=== PATIENT | male | born 1960 | race Caucasian/White ===

== ENCOUNTER 2018-02-04 21:05 | Inpatient (IN) | payer MEDICAID ==
--- NOTE | 2018-02-04 21:15 | CPEKG ---
Heart Rate: 115 RR Interval: 522 QRSD Interval: 88 QT Interval: 336 QTC Interval: 465 QRS [place]: 53 T Wave [place]: 81 EKG Severity - ABNORMAL ECG - EKG Impression: ATRIAL FIBRILLATION, V-RATE 94-139 EKG Impression: CONSIDER ANTEROSEPTAL INFARCT Electronically Signed By: Alisson Carlos 04-Feb-2018 23:51:51
[2018-02-04 21:30] LABS: PLATELET COUNT 318 10^3/uL (150-400)
[2018-02-04] MEDS ORDERED: DILTIAZEM 25 MG/5 ML VIAL IVP ONE (21:37)
[2018-02-04] MEDS ORDERED: ONDANSETRON DISINTEGRATING 4 MG TAB PO PRN (22:34)
[2018-02-04] MEDS ORDERED: ONDANSETRON 4 MG/2 ML VIAL IVP PRN (22:34)
[2018-02-04] MEDS ORDERED: ACETAMINOPHEN 325 MG TAB PO PRN (22:34)
[2018-02-04] MEDS ORDERED: FLUMAZENIL 0.5 MG/5 ML MDV IVP PRN (23:01)
[2018-02-04] MEDS ORDERED: LORazepam 2 MG/ML INJ IVP PRN (23:01)
[2018-02-04] MEDS ORDERED: NICOTINE 21 MG/24 HR PATCH TD PRN (23:01)
[2018-02-04 23:17] LABS: INR 0.94 (0.83-1.16); PROTIME(PATIENT) 12.8 SEC (12.0-15.0)
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
[2018-02-05] MEDS: NS 1,000 ML IV SCH ×2 (00:02→11:50)
[2018-02-05] MEDS: THIAMINE HCL 100 MG TAB PO SCH ×2 (00:08→09:36)
--- NOTE | 2018-02-05 00:08 | EDPHY ---
H & P Stated Complaint: CP and SOB for 3 days Time Seen by Provider: 02/04/18 21:20 HPI/ROS: CHIEF COMPLAINT: Chest pain HISTORY OF PRESENT ILLNESS: This 58-year-old male who presents with chest pressure that he has been aware of for the last 2-3 days. He feels this pressure across his upper chest. It does not radiate. He has had no nausea or vomiting. It is accompanied by shortness of breath. He felt worse today, prompting his roommate call 911. Has a history of tobacco abuse in is trying to cut back. He tells me that he currently smokes 3 cigarettes per day. He reports drinking 1 6 pack of beer daily. He denies any medical history. He does not have a primary care physician. REVIEW OF SYSTEMS: A ten point review of systems was performed and is negative with the exception of the items mentioned in the HPI. Past medical history: Tobacco abuse. Alcohol abuse. Past surgical history: None Social history: He lives with a roommate in a [facility]. He is not currently employed. No illicit drugs. General Appearance: Alert. Vital signs reviewed. Heart rate 120s. Eyes: Pupils equal and round, no conjunctival injection, no discharge. Anicteric. ENT, Mouth: Mucous membranes are moist, no oropharyngeal erythema or edema. Neck: No lymphadenopathy, supple. No JVD. Respiratory: Lungs are clear to auscultation; no wheezes, rales, or rhonchi. Cardiovascular: Irregularly irregular; no murmur, rub, or gallop. Gastrointestinal: Abdomen is soft and nontender, no masses or organomegaly, bowel sounds normal. Skin: Warm and dry, no rashes on exposed skin, normal color. Back: Nontender to palpation over the thoracolumbar spine. No CVAT. Extremities: No lower extremity edema, no calf tenderness or swelling. Neurological: Alert and oriented. Moving all four extremities easily and equally. Psychiatric: Normal affect. - Personal History Current Tetanus/Diphtheria Vaccine: No Current Tetanus Diphtheria and Acellular Pertussis (TDAP): No - Medical/Surgical History Hx Asthma: No Hx Chronic Respiratory Disease: No Hx Diabetes: No Hx Cardiac Disease: No Hx Renal Disease: No Hx Cirrhosis: No Hx Alcoholism: Yes Hx HIV/AIDS: No Hx Splenectomy or Spleen Trauma: No Other PMH: DENIES - Social History Smoking Status: Current every day smoker Constitutional: Initial Vital Signs Temperature (C) 36.4 C 02/04/18 21:11 Heart Rate 126 H 02/04/18 21:11 Respiratory Rate 18 02/04/18 21:11 Blood Pressure 146/103 H 02/04/18 21:11 O2 Sat (%) 95 02/04/18 21:11 O2 Delivery Mode Room Air Allergies/Adverse Reactions: No Known Allergies Allergy (Verified 02/04/18 21:13) Home Medications: Medication Instructions Recorded NK [No Known Home Meds] 02/04/18 Medical Decision Making - Diagnostics EKG Interpretation: 12 lead EKG is interpreted in Trace master View by emergency department physician. Atrial fibrillation with a ventricular rate of 94-139. ED Course/Re-evaluation: 58-year-old male with what appears to be new onset atrial fibrillation and a ventricular response of 94/139. He is experiencing some chest pressure and shortness of breath. He is not hypoxic in the emergency department. He is hypertensive initially. Initial troponin is normal. CBC, chemistries, and TSH reviewed. His EKG shows atrial fibrillation. He was given diltiazem 10 mg IV in the emergency department which slowed his rate. Slowing his rate also helped with his sensation of chest discomfort. He no longer was complaining of chest pain. Chest x-ray is normal. He is being admitted to the hospital for new onset atrial fibrillation. Differential Diagnosis: I have considered a differential diagnosis of atrial fibrillation that includes but is not limited to myocardial ischemia/coronary artery disease, sick sinus syndrome, hypertension, lung disease, hyperthyroidism, sleep apnea, and age. - Data Points Laboratory Results: Laboratory Results 02/04/18 21:10 02/04/18 21:10 02/04/18 02/04/18 02/04/18 21:25 21:10 21:10 WBC RBC Hgb Hct MCV MCH MCHC RDW Plt Count MPV Neut % (Auto) Lymph % (Auto) [place] % (Auto) Eos % (Auto) Baso % (Auto) Nucleat RBC Rel Count Absolute Neuts (auto) Absolute Lymphs (auto) Absolute Monos (auto) Absolute Eos (auto) Absolute Basos (auto) Absolute Nucleated RBC Immature Gran % Immature Gran # PT 12.8 SEC SEC (12.0-15.0) INR 0.94 (0.83-1.16) APTT 27.5 SEC SEC (23.0-38.0) Sodium Potassium Chloride Carbon Dioxide Anion Gap BUN Creatinine Estimated GFR Glucose Calcium Total Bilirubin 0.4 mg/dL mg/dL (0.1-1.4) Conjugated Bilirubin 0.0 mg/dL mg/dL (0.0-0.5) Unconjugated Bilirubin 0.0 mg/dL mg/dL (0.0-1.1) AST 50 IU/L IU/L (17-59) ALT 29 IU/L IU/L (21-72) Alkaline Phosphatase 49 IU/L IU/L (38-126) POC Troponin I 0.00 ng/mL ng/mL (0.00-0.08) Total Protein 7.9 g/dL g/dL (6.3-8.2) Albumin 4.6 g/dL g/dL (3.5-5.0) TSH 02/04/18 02/04/18 21:10 21:10 WBC 7.08 10^3/uL 10^3/uL (3.80-9.50) RBC 5.16 10^6/uL 10^6/uL (4.40-6.38) Hgb 17.5 g/dL g/dL (13.7-17.5) Hct 48.6 % % (40.0-51.0) MCV 94.2 fL fL (81.5-99.8) MCH 33.9 pg pg (27.9-34.1) MCHC 36.0 g/dL g/dL (32.4-36.7) RDW 12.4 % % (11.5-15.2) Plt Count 318 10^3/uL 10^3/uL (150-400) MPV 8.8 fL fL (8.7-11.7) Neut % (Auto) 31.7 % L % (39.3-74.2) Lymph % (Auto) 56.1 % H % (15.0-45.0) [place] % (Auto) 7.9 % % (4.5-13.0) Eos % (Auto) 3.1 % % (0.6-7.6) Baso % (Auto) 1.1 % % (0.3-1.7) Nucleat RBC Rel Count 0.0 % % (0.0-0.2) Absolute Neuts (auto) 2.24 10^3/uL 10^3/uL (1.70-6.50) Absolute Lymphs (auto) 3.97 10^3/uL H 10^3/uL (1.00-3.00) Absolute Monos (auto) 0.56 10^3/uL 10^3/uL (0.30-0.80) Absolute Eos (auto) 0.22 10^3/uL 10^3/uL (0.03-0.40) Absolute Basos (auto) 0.08 10^3/uL 10^3/uL (0.02-0.10) Absolute Nucleated RBC 0.00 10^3/uL 10^3/uL (0-0.01) Immature Gran % 0.1 % % (0.0-1.1) Immature Gran # 0.01 10^3/uL 10^3/uL (0.00-0.10) PT INR APTT Sodium 140 mEq/L mEq/L (135-145) Potassium 4.4 mEq/L mEq/L (3.3-5.0) Chloride 104 mEq/L mEq/L (97-110) Carbon Dioxide 21 mEq/l L mEq/l (22-31) Anion Gap 15 mEq/L mEq/L (8-16) BUN 7 mg/dL mg/dL (7-23) Creatinine 0.8 mg/dL mg/dL (0.7-1.3) Estimated GFR > 60 Glucose 90 mg/dL mg/dL (70-100) Calcium 9.3 mg/dL mg/dL (8.5-10.4) Total Bilirubin Conjugated Bilirubin Unconjugated Bilirubin AST ALT Alkaline Phosphatase POC Troponin I Total Protein Albumin TSH 3.110 uIU/mL uIU/mL (0.465-4.680) Medications Given: Sodium Chloride (Ns) 1,000 mls @ 75 mls/hr IV CONT SISSY Stop: 08/03/18 22:59 Last Admin: 02/05/18 00:02 Dose: 1,000 mls Lorazepam (Ativan Injection) 0 mg IVP Q1H PRN; Protocol PRN Reason: Alcohol Withdrawal w/IV access Stop: 08/03/18 23:00 Last Admin: 02/05/18 00:02 Dose: 2 mg Thiamine HCl (Vitamin B-1) 100 mg PO DAILY SISSY Stop: 08/03/18 23:14 Last Admin: 02/05/18 00:08 Dose: 100 mg Discontinued Medications Diltiazem HCl (Cardizem 25 Mg/5 Ml Vial) 10 mg IVP EDNOW ONE Stop: 02/04/18 21:38 Last Admin: 02/04/18 21:44 Dose: 10 mg Point of Care Test Results: Chemistry 02/04/18 21:25 POC Troponin I 0.00 ng/mL ng/mL (0.00-0.08) Departure - Departure Disposition: [facility] Inpatient Acute Clinical Impression: Atrial fibrillation Qualifiers: Atrial fibrillation type: unspecified Qualified Code(s): I48.91 - Unspecified atrial fibrillation Condition: Fair
[2018-02-05] MEDS ORDERED: METOPROLOL TARTRATE 25 MG TAB PO SCH (00:30)
[2018-02-05] MEDS: chlordiazePOXIDE 25 MG CAP PO SCH ×4 (01:31→22:28)
[2018-02-05] MEDS ORDERED: ENOXAPARIN 40 MG/0.4 ML SYR SC SCH (09:00)
[2018-02-05] MEDS: APIXABAN 5 MG TAB PO SCH ×2 (10:18→20:31)
[2018-02-05] MEDS: METOPROLOL TARTRATE 25 MG TAB PO SCH ×2 (10:18→20:31)
--- NOTE | 2018-02-05 11:00 | ECHO ---
[email or web address] [address] Main: [phone] Fax: [email or web address] Echocardiogram Name: EVELIA CHEEMA MR#: [id number] Study Date: 02/05/2018 Study Time: 08:51 AM Date of : 1960 Age: 58 year(s) Height: 177.8 cm (70 in.) Weight: 56.7 kg (125 lb.) BSA: 1.71 m2 Gender: Male Examination: Echo Indication: Arrthymia Image Quality: Contrast: Requested by: Cyndie Henry BP: 129 mmHg/96 mmHg Heart Rate: Rhythm: Indication: Arrthymia Procedure Staff Rn Clinical Coordinator: Clarissa Ram [facility] Reading Physician: Marck Downs MD Requesting Provider: Conclusions: No LV hypertrophy. Moderately reduced systolic LV function. The ejection fraction is estimated to be 40-45 %. Diastolic dysfunction is present. . Mid inferior/inferoseptal and entire apical have marked hypokinesis possibly akinesis consistent w prior infarction . Mild mitral valve leaflet calcification is present. Mild mitral valve regurgitation is present. The aortic valve is normal in appearance and function. The tricuspid valve is normal in appearance and function. Mild tricuspid regurgitation is present. The pulmonary artery pressure is normal. No previous Measurements: Chambers Valvular Assessment AV/MV Valvular Assessment TV/PV Normal Normal Normal Name Value Range Name Value Range Name Value Range LVDd (2D): 4.1 cm (4.2 cm-5.9 AV Vmax: 0.83 m/s (1 m/s-1.7 TR Vmax: 2.00 mm/s ( - ) cm) m/s) TR PGmax: 16 mmHg ( - ) LVOTd 2.1 cm 2.1 cm mm AV maxP mmHg ( - ) syst. PAP: 21 mmHg ( - ) LVEF (BP): 48 % (>=55 %) AV meanP mmHg ( - ) EF Range: 40-45 % MV E Vmax: 0.84 m/s ( - ) MV A Vmax: 0.94 m/s ( - ) MV E/A: 0.89 ( - ) Continued Measurements: Chambers Valvular Assessment AV/MV Valvular Assessment TV/PV Patient: EVELIA CHEEMA Study Date: 02/05/2018 Page 1 of 2 08:51 AM Name Value Name Value Name Value LADs Lon.2 cm MV E/E' Septal: 27.80 CVP (est.): 5 mmHg LA Area: 12.1 cm2 MV E/E' Lateral: 15.70 Findings: Left Ventricle: Normal size left ventricle. No LV hypertrophy. Moderately reduced systolic LV function. The ejection fraction is estimated to be 40-45 %. Diastolic dysfunction is present. . Mid inferior/inferoseptal and entire apical have marked hypokinesis possibly akinesis consistent w prior infarction . Right Ventricle: Normal size right ventricle. Left Atrium: The left atrium is normal in size. Right Atrium: The right atrium is normal in size. Mitral Valve: Mild-moderate mitral annular calcification. Mild mitral valve leaflet calcification is present. Mild mitral valve regurgitation is present. Aortic Valve: The aortic valve is normal in appearance and function. Tricuspid Valve: The tricuspid valve is normal in appearance and function. Mild tricuspid regurgitation is present. The pulmonary artery pressure is normal. Pulmonic Valve: Pulmonary valve not well visualized. Aorta: The aorta is normal. Pericardium: No pericardial effusion. (No Signature Object) Patient: EVELIA CHEEMA Study Date: 02/05/2018 Page 2 of 2 08:51 AM [id number]
--- NOTE | 2018-02-05 15:24 | ASMTCMCOM ---
CM Note CM Note Notes: 02/05/18 Pt admitted for RVR a fib, converted spontaneously today.Met with pt today. Lives in trailer on [facility] ([facility]), with roomate who has developmental delays - Reynold Bah text only. Landlord is Nelson Diop [phone]. Nelson runs them down to town monthly for groceries. 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 Pt has hx of nicotine and ETOH use. Resources provided including AA meeting times in [place]. Med data evaluated pt for medicaid application. Referred pt to [facility] who will follow up after discharge. Pt needs PCP. PT eval still pending. CM d/c plan: TBD CM to follow as needed. Date Signed: 02/05/2018 03:23 PM Electronically Signed By:Isi Caruso
--- NOTE | 2018-02-05 16:28 | PDMN ---
Medical Necessity Medical necessity: Pt meets inpt criteria per MD order and MCG M-505, Atrial Fibrilation. Pt admitted w/afib w/RVR, cp, acute alcohol WD, IVF, IV Ativan, Librium, ECHO, consistent tachy. Anticipate >2MN, med nec for ongoing eval and treatment.
--- NOTE | 2018-02-05 17:37 | HOSPPROG ---
Hospitalist Progress Note Assessment/Plan: Assessment: 58-year-old male presents with acute alcohol withdrawal and subsequent acute atrial fibrillation with rapid ventricular response and concomitant acute chest pain Plan: 1. Alcohol withdrawal. Acute, evidenced by tremulousness, tachycardia, daily drinking history with last consumption approximately 24 hr ago -CIWA protocol, IV and oral Ativan as needed 2. Atrial fibrillation with acute rapid ventricular response. New diagnosis, unclear whether this was provoked by and exacerbated by his alcohol withdrawal, or whether the to issues occurred concomitantly independently -EKG demonstrating atrial fibrillation with poor R-wave progression in leads V2 to V3, personally interpreted comma chest x-ray without any acute findings -patient has chemically cardioverted with oral beta-tameka therapy, continue monitor on telemetry as he is high risk for returning back into atrial fibrillation while he experiences ongoing alcohol withdrawal -given his reported prior history of CVA, patient has indication for systemic anticoagulation, initiate Eliquis 5 mg twice daily given his living situation and difficulty accessing medical care 3. Chest pain. Acute, new problem this provider, further workup indicated. Unclear whether the patient's chest pain was provoked by his atrial fibrillation or was caused by acute cardiac event resulting in focal wall motion abnormalities on echocardiogram -echo demonstrates moderate hypokinesis in focal locality is including the inferior wall, septum, apical wall with resultant ejection fraction 40-45%, mild mitral regurgitation, diastolic dysfunction -his cardiac enzymes are negative on presentation so it is likely that he experienced a previous cardiac vent, potentially predisposing him to development of atrial fibrillation, particularly with a lower threshold in the setting of alcohol withdrawal -given that the patient most likely has underlying obstructive coronary disease and his recent recurrence of chest pain may be evidence of risk for ischemia in particular territories, will pursue nuclear medicine stress test tomorrow a.m. And cardiac catheterization with consultation if there are any abnormalities -NPO after midnight -get lipid panel, hemoglobin A1c Diet. Regular, NPO after midnight Prophylaxis. High risk, Eliquis Code. Full Disposition. Upgraded to inpatient admission status given the patient's anticipated length stay is greater than 48 hr for reasonable medical necessity including acute alcohol withdrawal which has yet to clinically resolved with high risk comorbid acute atrial fibrillation with rapid ventricular response, acute chest pain and most likely recent myocardial infarction warranting further diagnostic testing including stress test and likely cardiac catheterization. Subjective: Patient reports no current chest pain, he does experience palpitations with heart rates greater than 150 Objective: Vital Signs Temp Pulse Resp BP Pulse Ox 36.8 C 124 H 16 116/98 H 98 02/05/18 12:22 02/05/18 12:22 02/05/18 12:22 02/05/18 12:22 02/05/18 12:22 PT 12.8 SEC (12.0-15.0) 02/04/18 21:10 INR 0.94 (0.83-1.16) 02/04/18 21:10 - Physical Exam Constitutional: no apparent distress, appears nourished, not in pain, No uncomfortable Cardiovascular: irregularly irregular, tachycardia, No systolic murmur, No edema Respiratory: no respiratory distress, no rales or rhonchi, clear to auscultation Gastrointestinal: normoactive bowel sounds, soft, non-tender abdomen, no palpable masses Neurologic: AAOx3, sensation intact bilaterally, asterixes (mild w/ bilat UE tremor), No weakness Psychiatric: not encephalopathic, thought process linear, anxious, No agitated ICD10 Worksheet Patient Problems: Problems Problem Status Onset Atrial fibrillation Acute
[2018-02-05] MEDS: NICOTINE 7 MG/24 HR PATCH TD SCH (17:54)
[2018-02-06] MEDS: NICOTINE 7 MG/24 HR PATCH TD SCH (07:35)
[2018-02-06] MEDS: chlordiazePOXIDE 25 MG CAP PO SCH (07:35)
[2018-02-06] MEDS: THIAMINE HCL 100 MG TAB PO SCH (07:35)
[2018-02-06] MEDS ORDERED: REGADENOSON 0.4 MG/5 ML SYR IVP ONE (09:45)
--- NOTE | 2018-02-06 10:03 | PDCARST ---
CAR Stress Test Results Type of Stress Test: Lexiscan stress test Indication: cp/abn echo Description of Procedure: Patient attempted to do Olman protocol but test was discontinued after 1 minute due to tremulousness and gait instability (likely EtOH w/d). He was transitioned to Lexiscan protocol. After informed consent was obtained, pt was established to ECG, blood pressure, HR and oximetry monitoring. STRESS EKG AND HEMODYNAMIC DATA. Resting heart rate: 82 BPM. Resting ECG: SR with diffuse T w flattening and TWi. Resting blood pressure: 110/80 mmHg. O2 saturation at rest: 96%. Peak heart rate: 122 BPM. Peak blood pressure: 112/80 mmHg. Arrhythmias: none. Symptoms: The patient experienced no typical symptoms of angina during stress or recovery. Stress/ Infusion ECG: No change in rhythm with no significant ST/T wave changes. Stress /infusion O2 saturation: 100% Impression: Uneventful Lexiscan infusion. Conclusion: Await nuclear images.
[2018-02-06] MEDS: APIXABAN 5 MG TAB PO SCH (10:47)
[2018-02-06] MEDS: METOPROLOL TARTRATE 25 MG TAB PO SCH ×2 (10:47→20:51)
[2018-02-06] MEDS: LISINOPRIL 2.5 MG TAB PO SCH (12:59)
[2018-02-06] MEDS: ATORVASTATIN CALCIUM 10 MG TAB PO SCH (12:59)
[2018-02-06] MEDS ORDERED: NITROGLYCERIN 0.4 MG BTL SL PRN (13:56)
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
--- NOTE | 2018-02-06 15:49 | HOSPPROG ---
Hospitalist Progress Note Assessment/Plan: Assessment: 58-year-old male presents with acute alcohol withdrawal and subsequent acute atrial fibrillation with rapid ventricular response and concomitant acute chest pain and suspected ID Plan: 1. Alcohol withdrawal. Acute, evidenced by tremulousness, tachycardia, daily drinking history with last consumption approximately 48 hr ago -requiring librium o/n 2/2 escalation -CIWA protocol, IV and oral Ativan as needed 2. Atrial fibrillation with acute rapid ventricular response. New diagnosis, likely predisposed given recent ID and now EtOH withdraw -in NSR on tele (personally interpreted) -cont metop 25 bid, cont eliquis, hold tonight dosing prior to cath 3. Chest pain and suspected ID. Likely occurred [employer] and remotely enough for troponins to clear prior to arrival, but Echo and Stress both indicative of infarction -d/w Nicole Evans, internal consultant, she recommends diagnostic cath in AM to reveal anatomy and any at-risk territory -start ACEi, cont bblocker, add statin (goal LDL 70) Diet. Regular, NPO after midnight Prophylaxis. High risk, Eliquis on hold Code. Full Disposition. Cath tomorrow AM Subjective: no further chest pain, remains tremulous Objective: Vital Signs Temp Pulse Resp BP Pulse Ox 36.4 C 78 15 143/94 H 95 02/06/18 11:05 02/06/18 11:05 02/06/18 11:05 02/06/18 11:05 02/06/18 11:05 02/05/18 02/06/18 02/07/18 05:59 05:59 05:59 Intake Total 2185 Balance 2185 PT 12.8 SEC (12.0-15.0) 02/04/18 21:10 INR 0.94 (0.83-1.16) 02/04/18 21:10 - Physical Exam Constitutional: no apparent distress, not in pain, chronically ill appearing, No uncomfortable Cardiovascular: regular rate and rhythym, no murmur, rub, or gallop, No edema Respiratory: no respiratory distress, no rales or rhonchi, clear to auscultation Gastrointestinal: normoactive bowel sounds, soft, non-tender abdomen, no palpable masses Neurologic: AAOx3, other (bilat upper ext tremulousness), No asterixes Psychiatric: not encephalopathic, thought process linear, anxious, No agitated ICD10 Worksheet Patient Problems: Problems Problem Status Onset Atrial fibrillation Acute
[2018-02-07 04:07] LABS: INR 1.04 (0.83-1.16); PROTIME(PATIENT) 13.8 SEC (12.0-15.0)
[2018-02-07 04:16] LABS: PLATELET COUNT 245 10^3/uL (150-400)
[2018-02-07] MEDS ORDERED: DIAZEPAM 5 MG TAB PO ONE (06:00)
[2018-02-07] MEDS ORDERED: ASPIRIN EC 325 MG TAB PO ONE ×2 (06:00→12:00)
[2018-02-07] MEDS ORDERED: FAMOTIDINE 20 MG TAB PO ONE (06:00)
[2018-02-07] MEDS ORDERED: diphenhydrAMINE 25 MG CAP PO ONE ×2 (06:00→12:00)
[2018-02-07] MEDS: THIAMINE HCL 100 MG TAB PO SCH (08:01)
[2018-02-07] MEDS: ATORVASTATIN CALCIUM 10 MG TAB PO SCH (08:01)
[2018-02-07] MEDS: LISINOPRIL 2.5 MG TAB PO SCH (08:01)
[2018-02-07] MEDS: NICOTINE 7 MG/24 HR PATCH TD SCH (08:01)
[2018-02-07] MEDS: METOPROLOL TARTRATE 25 MG TAB PO SCH ×2 (08:01→21:14)
--- NOTE | 2018-02-07 08:55 | CPEKG ---
Heart Rate: 82 RR Interval: 732 P-R Interval: 160 QRSD Interval: 80 QT Interval: 416 QTC Interval: 486 P Gaffney: 85 QRS Gaffney: 60 T Wave Gaffney: -52 EKG Severity - ABNORMAL ECG - EKG Impression: SINUS RHYTHM EKG Impression: RIGHT ATRIAL ABNORMALITY EKG Impression: BORDERLINE T ABNORMALITIES, INFERIOR LEADS EKG Impression: BORDERLINE PROLONGED QT INTERVAL Electronically Signed By: Navarro Álvarez 07-Feb-2018 09:42:39
[2018-02-07] MEDS ORDERED: FAMOTIDINE 20 MG TAB ONE (12:00)
[2018-02-07] MEDS ORDERED: DIAZEPAM 5 MG TAB ONE (12:01)
--- NOTE | 2018-02-07 13:53 | PDHPUP ---
History & Physical Update H&P update statement: This history and physical update is based on an assessment of the patient which was completed after admission or registration (within 24 hours), but prior to the surgery/procedure. H&P update: H&P reviewed & patient examined, no change in patient's condition since H&P completed
--- NOTE | 2018-02-07 13:53 | PDPROPOC ---
Sedation Plan of Care Sedation Plan of Care: vital signs stable, mental status noted, patient educated of risks, benefits, alternatives, patient can tolerate sedation ASA Classification: ASA 2 Planned drugs: fentanyl, midazolam Mallampati Score: Class 1 Mallampati Reference Image: Patient passed 3-3-2 rule?: Yes
[2018-02-07] MEDS ORDERED: LIDOCAINE 1% 300 MG/30 ML SDV ONE (14:00)
[2018-02-07] MEDS ORDERED: fentaNYL 100 MCG/2 ML INJ ONE ×2 (14:00→14:31)
[2018-02-07] MEDS ORDERED: IOPAMIDOL (ISOVUE-370) 150 ML BTL IV ONE (14:00)
[2018-02-07] MEDS ORDERED: MIDAZOLAM 2 MG/2 ML VIAL ONE ×2 (14:00→14:31)
[2018-02-07] MEDS ORDERED: ATROPINE SULFATE 1 MG/10 ML SYR IVP PRN (15:03)
--- NOTE | 2018-02-07 15:13 | PDDXCAT ---
Diagnostic Cath Note - . Date: 02/07/18 Dinkey Brakeman: Richard Indication: other (Chest pain, abnormal ECG, abnormal nuclear stress test, and cardiomyopathy.) - Procedure Access: right groin Procedure: left heart catheterization, coronary angiography, left ventriculogram - Materials Left Heart Cath size: 6F Left Heart Cath materials: standard multipack (JL4, JR4, pigtail) - Findings-Left Heart Catheterization LM: Normal. LAD: Fluoroscopy reveals the presence of extensive calcification from the proximal to mid-LAD. Angiography reveals mild irregularities of the proximal LAD. The mid-LAD demonstrates a total occlusion; the distal LAD fills via right- to-left collaterals; the principle diagonal branch has 50% ostial stenosis. LCX: Flouroscopy demonstrates the presence of significant calcification in the proximal to mid-circumflex. Angiography reveals diffuse moderate disease of the proximal to midcircumflex. In the mid-circumflex, there is a focal 70-80% stenosis immediately prior to the origin of the principal obtuse marginal branch and jeopardizing a small posterolateral branch. RCA: Flouroscopy demonstrates the presence of calcification involving the proximal to mid-RCA. Angiography reveals moderate disease of the mid-RCA up to 50%. The ostium of the posterior descending branch has a focal stenosis of at least 60%. LVEF: 45% Wall motion: Apical hypokinesis. Estimated blood loss: <50ml Closure method: Angioseal Assessment: 1) Ischemic cardiomyopathy with mildly reduced LV systolic function. 2) Multivessel CAD as described above. Plan: CT surgery consult to consider CABG. Patient Problems: Problems Problem Status Onset Atrial fibrillation Acute
--- NOTE | 2018-02-07 16:32 | HOSPPROG ---
Hospitalist Progress Note Assessment/Plan: Assessment: 58-year-old male presents with acute alcohol withdrawal and subsequent acute atrial fibrillation with rapid ventricular response and concomitant acute chest pain and suspected IN Plan: 1. Alcohol withdrawal. Acute, evidenced by tremulousness, tachycardia, resolved -DC CIWA 2. Atrial fibrillation with acute rapid ventricular response. New diagnosis, likely predisposed given recent IN and now EtOH withdraw -in NSR on EKG (personally interpreted) -cont metop 25 bid, holding eliquis given upcoming CABG 3. Ischemic cardiomyopathy w/ multivessel CAD. Chronic, likely IN prior to arrival, remote enough for troponins to clear prior to arrival, cath w/ EF 45%, mid LAD total occlusion, diag 50%, mid-LCx 70-80%, RCA 50% -no e/o acute CHF on exam -cont ACEi, bblocker, statin (goal LDL 70), ASA -d/w Dr. Ramos, he recommends CABG and, after discussing w/ patient, it seems that he will be at risk for complication if discharged home and should receive urgent CABG, plan for 02/09 after holding eliquis 72hrs Diet. Regular Prophylaxis. High risk, SCDs Code. Full Disposition. CABG 02/09 Subjective: patient fatigued, feels groggy, no chest pain Objective: Vital Signs Temp Pulse Resp BP Pulse Ox 36.3 C 77 18 120/77 99 02/07/18 11:46 02/07/18 11:46 02/07/18 11:46 02/07/18 11:46 02/07/18 11:46 Laboratory Results 02/07/18 03:45 02/07/18 03:45 02/06/18 02/07/18 02/08/18 05:59 05:59 05:59 Intake Total 2185 750 Balance 2185 750 PT 13.8 SEC (12.0-15.0) 02/07/18 03:45 INR 1.04 (0.83-1.16) 02/07/18 03:45 - Physical Exam Constitutional: no apparent distress, appears nourished, not in pain, No uncomfortable Cardiovascular: regular rate and rhythym, no murmur, rub, or gallop, No edema Respiratory: no respiratory distress, no rales or rhonchi, clear to auscultation Gastrointestinal: normoactive bowel sounds, soft, non-tender abdomen, no palpable masses, No guarding, No distension Psychiatric: not anxious, not encephalopathic, flat affect, other (lethargic but arousable to verbal stimuli), No agitated ICD10 Worksheet Patient Problems: Problems Problem Status Onset Atrial fibrillation Acute
--- NOTE | 2018-02-07 16:46 | PDGENHP ---
History and Physical - Chief Complaint CAD - History of Present Illness 58M with 3VD consulted by Dr. Matthew Ramos for coronary revascularization. Pt was seen in the ED on the in rapid atrial fibrillation with c/o chest pain/ SOB while chopping wood. The pt states over the past year he's experienced chest pain/SOB on exertion which resolves when he rests. He also c/o associated weakness and lightheadedness. He denies syncope, cough, abdominal pain, urinary problems, or LE edema. He states he was told several years ago at [facility] that he had had a minor stroke but his records do not confirm evidence of stroke. He denies h/o surgeries. He has smoked cigarettes since his teens (3 per day now) and has drank at least a 6-pack of beer each day since then as well. He's hoping to get surgery on this admission since he's currently uninsured and without a job. He lives up [facility] with a roommate. History Information - Allergies/Home Medication List Allergies/Adverse Reactions: No Known Allergies Allergy (Verified 02/04/18 21:13) Home Medications: NK [No Known Home Meds] 02/04/18 [Last Taken Unknown] I have personally reviewed and updated: medical history, social history, surgical history - Past Medical History atrial fibrillation, coronary artery disease Additional medical history: osteoarthritis, seasonal allergies, history of occasional wheezing - Surgical History Reports: no pertinent surgical hx - Family History Additional family history: Mother with history [place] CAD x2. Patient's youngest sister age 50s from [place]. - Social History Smoking Status: Current every day smoker Tobacco Use: Cigarettes Alcohol Use: Heavy (6-8 pack daily. No history withdrawal symptoms.) Drug Use: Marijuana (Daily use.) Review of Systems Review of Systems: ROS: 10pt was reviewed & negative except for what was stated in HPI & below Physical Exam Physical Exam: Temp Pulse Resp BP Pulse Ox 36.3 C 77 18 120/77 99 02/07/18 11:46 02/07/18 11:46 02/07/18 11:46 02/07/18 11:46 02/07/18 11:46 Lab Data & Imaging Review 02/07/18 03:45 02/07/18 03:45 WBC 5.73 10^3/uL (3.80-9.50) 02/07/18 03:45 RBC 4.90 10^6/uL (4.40-6.38) 02/07/18 03:45 Hgb 16.4 g/dL (13.7-17.5) 02/07/18 03:45 Hct 47.4 % (40.0-51.0) 02/07/18 03:45 MCV 96.7 fL (81.5-99.8) 02/07/18 03:45 MCH 33.5 pg (27.9-34.1) 02/07/18 03:45 MCHC 34.6 g/dL (32.4-36.7) 02/07/18 03:45 RDW 12.6 % (11.5-15.2) 02/07/18 03:45 Plt Count 245 10^3/uL (150-400) 02/07/18 03:45 MPV 8.8 fL (8.7-11.7) 02/07/18 03:45 Neut % (Auto) 52.9 % (39.3-74.2) 02/07/18 03:45 Lymph % (Auto) 31.1 % (15.0-45.0) 02/07/18 03:45 [place] % (Auto) 10.5 % (4.5-13.0) 02/07/18 03:45 Eos % (Auto) 4.4 % (0.6-7.6) 02/07/18 03:45 Baso % (Auto) 0.9 % (0.3-1.7) 02/07/18 03:45 Nucleat RBC Rel Count 0.0 % (0.0-0.2) 02/07/18 03:45 Absolute Neuts (auto) 3.04 10^3/uL (1.70-6.50) 02/07/18 03:45 Absolute Lymphs (auto) 1.78 10^3/uL (1.00-3.00) 02/07/18 03:45 Absolute Monos (auto) 0.60 10^3/uL (0.30-0.80) 02/07/18 03:45 Absolute Eos (auto) 0.25 10^3/uL (0.03-0.40) 02/07/18 03:45 Absolute Basos (auto) 0.05 10^3/uL (0.02-0.10) 02/07/18 03:45 Absolute Nucleated RBC 0.00 10^3/uL (0-0.01) 02/07/18 03:45 Immature Gran % 0.2 % (0.0-1.1) 02/07/18 03:45 Immature Gran # 0.01 10^3/uL (0.00-0.10) 02/07/18 03:45 PT 13.8 SEC (12.0-15.0) 02/07/18 03:45 INR 1.04 (0.83-1.16) 02/07/18 03:45 APTT 28.3 SEC (23.0-38.0) 02/07/18 03:45 Sodium 138 mEq/L (135-145) 02/07/18 03:45 Potassium 4.7 mEq/L (3.3-5.0) 02/07/18 03:45 Chloride 105 mEq/L (97-110) 02/07/18 03:45 Carbon Dioxide 25 mEq/l (22-31) 02/07/18 03:45 Anion Gap 8 mEq/L (8-16) 02/07/18 03:45 BUN 12 mg/dL (7-23) 02/07/18 03:45 Creatinine 0.8 mg/dL (0.7-1.3) 02/07/18 03:45 Estimated GFR > 60 02/07/18 03:45 Glucose 93 mg/dL (70-100) 02/07/18 03:45 Hemoglobin A1c 5.2 % (4.0-6.0) 02/05/18 04:40 Estim Average Glucose 103 mg/dL (68-126) 02/05/18 04:40 Calcium 9.6 mg/dL (8.5-10.4) 02/07/18 03:45 Magnesium 1.7 mg/dL (1.6-2.3) 02/07/18 03:45 Total Bilirubin 0.4 mg/dL (0.1-1.4) 02/04/18 21:10 Conjugated Bilirubin 0.0 mg/dL (0.0-0.5) 02/04/18 21:10 Unconjugated Bilirubin 0.0 mg/dL (0.0-1.1) 02/04/18 21:10 AST 50 IU/L (17-59) 02/04/18 21:10 ALT 29 IU/L (21-72) 02/04/18 21:10 Alkaline Phosphatase 49 IU/L (38-126) 02/04/18 21:10 POC Troponin I 0.00 ng/mL (0.00-0.08) 02/04/18 21:25 Troponin I < 0.012 ng/mL (0.000-0.034) 02/05/18 04:40 Total Protein 7.9 g/dL (6.3-8.2) 02/04/18 21:10 Albumin 4.6 g/dL (3.5-5.0) 02/04/18 21:10 Triglycerides 110 mg/dL (40-150) 02/06/18 04:02 Cholesterol 164 mg/dL (140-220) 02/06/18 04:02 Cholesterol Risk Factr 0.5 (0.2-1.0) 02/06/18 04:02 LDL Cholesterol, Calc 81 mg/dL (80-100) 02/06/18 04:02 LDL Risk Factor 0.6 (0.2-1.0) 02/06/18 04:02 VLDL Cholesterol 22 mg/dL (8-25) 02/06/18 04:02 Non-HDL Cholesterol 103 mg/dL (90-129) 02/06/18 04:02 HDL Cholesterol 61 mg/dL (40-65) 02/06/18 04:02 LDL/HDL Ratio 1.33 RATIO (1.00-3.64) 02/06/18 04:02 Cholesterol/HDL Ratio 2.69 RATIO (1.00-4.97) 02/06/18 04:02 TSH 3.110 uIU/mL (0.465-4.680) 02/04/18 21:10 Imaging Review: TTE: EF 45%, mild MR, mild TR LHC: mid LAD 100%, diag 50%, LCx 80%, mid RCA 50%, PDA 60% Visualized and Interpreted Chest x-ray results: Yes Chest X-Ray results: no infiltrate, normal heart size EKG Interpretation: Positive for: normal sinsus rhythm Assessment & Plan Assessment: 58m with severe 3VD/atrial fibrillation/ETOH and tobacco abuse Plan: Discussed with Dr. Steve. Plan for CABG to be determined on 02/08.
[2018-02-08] MEDS: NICOTINE 7 MG/24 HR PATCH TD SCH (09:26)
[2018-02-08] MEDS: ASPIRIN EC 81 MG TAB PO SCH (09:26)
[2018-02-08] MEDS: ATORVASTATIN CALCIUM 10 MG TAB PO SCH (09:26)
[2018-02-08] MEDS: LISINOPRIL 2.5 MG TAB PO SCH (09:26)
[2018-02-08] MEDS: METOPROLOL TARTRATE 25 MG TAB PO SCH ×2 (09:26→20:46)
[2018-02-08] MEDS: THIAMINE HCL 100 MG TAB PO SCH (09:26)
--- NOTE | 2018-02-08 09:45 | ASMTCMCOM ---
CM Note CM Note Notes: CM spoke to Dr. Fleming regarding d/c POC. Pt is having a CABG tomorrow. Med Data submitted a Medicaid application on Monday. It may take 2-3 weeks for the Medicaid application to be processed. CM to follow for d/c needs. Plan: Most likely independent with cardiac rehab Date Signed: 02/08/2018 09:44 AM Electronically Signed By:DERRICK August
--- NOTE | 2018-02-08 14:18 | HOSPPROG ---
Hospitalist Progress Note Assessment/Plan: Assessment: 58-year-old male presents with multivessel CAD, acute alcohol withdrawal, acute atrial fibrillation with rapid ventricular response Plan: 1. Ischemic cardiomyopathy w/ multivessel CAD. Likely IA prior to arrival, remote enough for troponins to clear prior to arrival, cath w/ EF 45%, mid LAD total occlusion, diag 50%, mid-LCx 70-80%, RCA 50% -no e/o acute CHF on exam -cont ACEi, bblocker, statin (goal LDL 70), ASA -d/w CT surgery, they agree w/ CABG 02/09 AM -holding eliquis 72hrs prior to surg 2. Alcohol withdrawal. Acute, evidenced by tremulousness, tachycardia, resolved 2. Atrial fibrillation with acute rapid ventricular response. New diagnosis, likely predisposed given recent IA and EtOH withdraw -in NSR on tele (personally interpreted) -cont metop 25 bid, holding eliquis given upcoming CABG Diet. Regular, NPO after MN Prophylaxis. High risk, SCDs Code. Full Disposition. CABG 02/09 Subjective: no chest pain o/n, patient feels confident in plan for CABG Objective: Vital Signs Temp Pulse Resp BP Pulse Ox 36.9 C 73 15 105/69 98 02/08/18 12:00 02/08/18 12:00 02/08/18 12:00 02/08/18 12:00 02/08/18 12:00 Laboratory Results 02/07/18 03:45 02/07/18 03:45 02/07/18 02/08/18 02/09/18 05:59 05:59 05:59 Intake Total 750 700 Balance 750 700 PT 13.8 SEC (12.0-15.0) 02/07/18 03:45 INR 1.04 (0.83-1.16) 02/07/18 03:45 - Physical Exam Constitutional: no apparent distress, appears nourished, not in pain, No uncomfortable Cardiovascular: regular rate and rhythym, no murmur, rub, or gallop, No edema Respiratory: no respiratory distress, no rales or rhonchi, clear to auscultation Gastrointestinal: normoactive bowel sounds, soft, non-tender abdomen, no palpable masses Neurologic: AAOx3, No asterixes Psychiatric: interacting appropriately, not anxious, not encephalopathic, thought process linear ICD10 Worksheet Patient Problems: Problems Problem Status Onset Atrial fibrillation Acute
[2018-02-08] MEDS ORDERED: TEMAZEPAM 15 MG CAP PO PRN (15:59)
--- NOTE | 2018-02-08 16:30 | PDCARPN ---
Cardiology Progress Note Assessment/Plan: Coronary Artery Disease: Discussed catheterization findings with patient. Plan is for CABG tomorrow for multivessel CAD. Stable without symptoms of angina. - Aggressive secondary prevention. - Low dose atorvastatin started. Current LDL cholesterol is 81 with a goal of less than 70. Ischemic Cardiomyopathy: Mildly reduced left ventricular systolic function with an ejection fraction of 45%. No evidence of decompensated CHF. Paroxysmal Atrial Fibrillation: Spontaneously reverted to sinus rhythm on medical therapy. - Resume systemic anticoagulation post-CABG. 02/08/18 16:28 Subjective: No complaints. Objective: Vital Signs (8 Hrs) Temp Pulse Resp BP Pulse Ox 02/08/18 15:55 37.0 C 76 15 98/68 L 99 02/08/18 12:00 36.9 C 73 15 105/69 98 Intake/Output (24 Hrs) 02/07/18 02/08/18 02/09/18 05:59 05:59 05:59 Intake Total 750 700 Balance 750 700 Intake: Oral (ml) 750 700 Other: Number of Voids Toilet 1 1 4 Number of Stools Toilet 1 Result Diagrams: 02/07/18 03:45 02/07/18 03:45 - Physical Exam Constitutional: no apparent distress Eyes: anicteric sclera Ears, Nose, Mouth, Throat: moist mucous membranes Cardiovascular: regular rate and rhythm, no murmurs, no gallops Respiratory: clear to auscultate bilat Gastrointestinal: normoactive bowel sounds, no tenderness, no masses Skin: no edema Neurologic: AAOx3 Psychiatric: not anxious ICD10 Worksheet Patient Problems: Problems Problem Status Onset Atrial fibrillation Acute
[2018-02-08] MEDS: SENNOSIDES/DOCUSATE SODIUM TAB PO SCH (20:46)
[2018-02-08] MEDS ORDERED: CHLORHEXIDINE GLUC HIBICLENS 118 ML BTL TP SCH (21:00)
[2018-02-08] MEDS: MUPIROCIN 2% 22 GM OINT NS SCH (22:15)
[2018-02-09] MEDS ORDERED: NA BICARBONATE 50 MEQ/50 ML VIAL ONE ×2 (06:45→20:29)
[2018-02-09] MEDS ORDERED: MILRINONE/DEXTROSE/100 ML BAG IV ONE (06:45)
[2018-02-09] MEDS ORDERED: PROTAMINE SULFATE 50 MG/5 ML VIAL IVP ONE ×3 (06:45→21:15)
[2018-02-09] MEDS ORDERED: HEPARIN 10,000 UNIT/10 ML MDV (1,000 UNIT/ML) ONE ×2 (06:45→06:47)
[2018-02-09] MEDS ORDERED: CALCIUM CHLORIDE 1 GM/10 ML INJ ONE ×2 (06:45→06:47)
[2018-02-09] MEDS ORDERED: niCARdipine/NACL/200 ML BAG IV ONE (06:46)
[2018-02-09] MEDS ORDERED: ADENOSINE 6 MG/2 ML VIAL ONE (06:46)
[2018-02-09] MEDS ORDERED: ceFAZolin 1 GM VIAL ONE (06:46)
[2018-02-09] MEDS ORDERED: NITROGLYCERIN/D5W 50 MG/250 ML BOTTLE IV ONE (06:46)
[2018-02-09] MEDS ORDERED: AMIODARONE HCL 150 MG/3 ML VIAL ONE ×2 (06:46→06:47)
[2018-02-09] MEDS ORDERED: DOPamine/DEXTROSE 400 MG/250 ML BAG IV ONE (06:46)
[2018-02-09] MEDS ORDERED: ALBUMIN 5% 250 ML BOTTLE IV ONE ×2 (06:47→19:34)
[2018-02-09] MEDS ORDERED: MAGNESIUM SULFATE 1 GM/2 ML VIAL ONE (06:47)
[2018-02-09] MEDS ORDERED: methylPREDNISolone SOD SUCC 1 GM/8 ML VIAL ONE (06:47)
[2018-02-09] MEDS ORDERED: CITRATE DEXTROSE SOLN 500 ML BAG ONE (06:47)
[2018-02-09] MEDS ORDERED: LIDOCAINE 2% 100 MG/5 ML SYR ONE (06:47)
[2018-02-09] MEDS ORDERED: PHENYLEPHRINE HCL 50 MG in NS 250 ML IV ONE (07:00)
[2018-02-09] MEDS ORDERED: ceFAZolin 2 GM/DEXTROSE 100 ML IV ONE (07:00)
[2018-02-09] MEDS ORDERED: VERAPAMIL 5 MG, NITROGLYCERIN 2.5 MG, HEPARIN 500 UNIT, SODIUM BICARBONATE 0.2 MEQ in L... MISC ONE ×2 (07:00→09:15)
[2018-02-09] MEDS ORDERED: NOREPINEPHRINE BITARTRATE 16 MG in NS 250 ML IV ONE (07:00)
[2018-02-09] MEDS ORDERED: SODIUM BICARBONATE 20 MEQ, LIDOCAINE 1% 10 ML in NORMOSOL-R 1,000 ML MISC ONE (07:00)
[2018-02-09] MEDS ORDERED: AMINOCAPROIC ACID 5 GM/20 ML VIAL IV ONE (07:00)
[2018-02-09] MEDS ORDERED: niCARdipine/NACL 200 ML IV ONE (07:00)
[2018-02-09] MEDS ORDERED: CITRATE DEXTROSE SOLN 500 ML BAG MISC ONE (07:00)
[2018-02-09] MEDS ORDERED: INSULIN REGULAR HUMAN 100 UNIT in NS 100 ML IV ONE (07:00)
[2018-02-09] MEDS ORDERED: MANNITOL 25% 12.5 GM/50 ML VIAL IVP ONE (07:00)
--- NOTE | 2018-02-09 07:31 | PDHPUP ---
History & Physical Update H&P update statement: This history and physical update is based on an assessment of the patient which was completed after admission or registration (within 24 hours), but prior to the surgery/procedure. H&P update: no change in patient's condition since H&P completed
[2018-02-09] MEDS ORDERED: VANCOMYCIN 1 GM VIAL ONE (07:33)
[2018-02-09] MEDS ORDERED: LR 1,000 ML IV ONE (08:26)
[2018-02-09] MEDS ORDERED: MIDAZOLAM 2 MG/2 ML VIAL IVP ONE (08:27)
--- NOTE | 2018-02-09 08:27 | PDANEPAE ---
ANE History of Present Illness 58 yo for cabg ANE Past Medical History - Cardiovascular History Hx Coronary Artery / Peripheral Vascular Disease: Yes - Pulmonary History Hx Oxygen in Use at Home: No Hx Sleep Apnea: No Sleep Apnea Screening Result - Last Documented: Negative - Endocrine History Hx Diabetes: No ANE Review of Systems Review of Systems: - Exercise capacity METS (RN): 4 METS ANE Patient History - Allergies Allergies/Adverse Reactions: No Known Allergies Allergy (Verified 02/04/18 21:13) - Home Medications Home medications: home medication list seen and reviewed Home Medications: NK [No Known Home Meds] 02/04/18 [Last Taken Unknown] - NPO status NPO Status: no food or drink >8 hours NPO Since - Liquids (Date): 02/08/18 NPO Since - Liquids (Time): 22:30 NPO Since - Solids (Date): 02/08/18 NPO Since - Solids (Time): 20:00 - Anes Hx Anes Hx: no prior problems - Smoking Hx Smoking Status: Current some day smoker - Alcohol Use Alcohol Use: Heavy (6-8 pack daily. No history withdrawal symptoms.) ANE Labs/Vital Signs - Labs Result Diagrams: 02/07/18 03:45 02/09/18 03:59 - Vital Signs Blood Pressure: 117/78 Heart Rate: 76 Respiratory Rate: 12 O2 Sat (%): 98 Height: 5 ft 10 in Weight: 54.7 kg ANE Physical Exam - Airway Neck exam: FROM Mallampati Score: Class 2 Mouth exam: normal dental/mouth exam - Pulmonary Pulmonary: no respiratory distress - Cardiovascular Cardiovascular: regular rate and rhythym - ASA Status ASA Status: IV ANE Anesthesia Plan Anesthesia Plan: general endotracheal anesthesia Lines/Monitors: arterial line, central line, SUDHIR
[2018-02-09] MEDS ORDERED: DEXMEDETOMIDINE HCL 400 MCG in NS 100 ML IV SCH (08:30)
[2018-02-09] MEDS: MUPIROCIN 2% 22 GM OINT NS SCH ×2 (08:31→22:35)
[2018-02-09] MEDS ORDERED: REMIFENTANIL HCL 1 MG VIAL ONE ×2 (08:45→11:09)
[2018-02-09] MEDS ORDERED: PROPOFOL/EMULSION 500 MG/50 ML BOTTLE IV ONE ×2 (08:45→11:09)
[2018-02-09] MEDS ORDERED: fentaNYL 250 MCG/5 ML INJ ONE (08:45)
[2018-02-09] MEDS ORDERED: DEXAMETHASONE 4 MG/ML VIAL ONE ×2 (08:48)
[2018-02-09] MEDS ORDERED: ROCURONIUM 100 MG/10 ML VIAL ONE (08:48)
[2018-02-09] MEDS ORDERED: PAPAVERINE HCL 60 MG in NS 100 ML IV ONE (09:30)
[2018-02-09] MEDS ORDERED: ceFAZolin 1 GM/5 ML SYR ONE (11:08)
[2018-02-09] MEDS ORDERED: HYDROmorphONE/DILAUDID 2 MG/ML INJ ONE (13:02)
[2018-02-09] MEDS: LISINOPRIL 2.5 MG TAB PO SCH (13:07)
[2018-02-09] MEDS: ATORVASTATIN CALCIUM 10 MG TAB PO SCH (13:07)
[2018-02-09] MEDS: NICOTINE 7 MG/24 HR PATCH TD SCH (13:07)
[2018-02-09] MEDS: THIAMINE HCL 100 MG TAB PO SCH (13:07)
[2018-02-09] MEDS: SENNOSIDES/DOCUSATE SODIUM TAB PO SCH (13:07)
[2018-02-09] MEDS: METOPROLOL TARTRATE 25 MG TAB PO SCH (13:07)
[2018-02-09] MEDS: ASPIRIN EC 81 MG TAB PO SCH (13:07)
--- NOTE | 2018-02-09 15:16 | POSTOPPROG ---
Post Op Note Date of Operation: 02/09/18 Surgeon: Rachael Steve Environmental Department Manager: Teressa Soliman PA-C Anesthesia: GET(General Endotracheal) Pre-op Diagnosis: 1) Paroxysmal atrial fibrillation; 2) Severe multi-vessel CAD Post-op Diagnosis: Same Procedure: 1) B/L PVI; 2) EMI ligation; 3) CABG x 4 Findings: LAD 1.75mm, OM1 1.75mm, OM2 1.25mm, PDA 1.5mm Inf/Abcess present in the surg proc area at time of surgery?: No EBL: 100-500 Complications: None Specimen(s): None
[2018-02-09] MEDS ORDERED: BISACODYL 10 MG SUPP PR PRN (15:39)
[2018-02-09] MEDS ORDERED: SODIUM CL NASAL 45 ML BTL EACHNARE PRN (15:39)
[2018-02-09] MEDS ORDERED: MEPERIDINE 25 MG/0.5 ML AMP IVP PRN (15:39)
[2018-02-09] MEDS ORDERED: POTASSIUM Cl (KCl) 50 ML IV PRN (15:39)
[2018-02-09] MEDS ORDERED: D50W 25 GM/50 ML SYR IVP PRN (15:39)
[2018-02-09] MEDS ORDERED: PANTOPRAZOLE SODIUM 40 MG VIAL IVP ONE (15:39)
[2018-02-09] MEDS ORDERED: METOCLOPRAMIDE 10 MG/2 ML VIAL IVP PRN (15:39)
[2018-02-09] MEDS ORDERED: LACTULOSE 20 GM/30 ML UDCUP PO PRN (15:39)
[2018-02-09] MEDS ORDERED: ACETAMINOPHEN 650 MG SUPP PR PRN (15:39)
[2018-02-09] MEDS ORDERED: MAGNESIUM HYDROXIDE 30 ML UDCUP PO PRN (15:39)
[2018-02-09] MEDS ORDERED: POLYETHYLENE GLYCOL 3350 17 GM PKT PO PRN (15:39)
[2018-02-09] MEDS ORDERED: CEPACOL LOZENGE PO PRN (15:39)
[2018-02-09] MEDS ORDERED: NS 1,000 ML IV SCH (15:45)
[2018-02-09] MEDS ORDERED: NOREPINEPHRINE BITARTRATE 16 MG in NS 250 ML IV SCH (16:00)
[2018-02-09] MEDS ORDERED: INSULIN REGULAR HUMAN 100 UNIT in NS 100 ML IV SCH (16:00)
--- NOTE | 2018-02-09 16:06 | CPEKG ---
Heart Rate: 85 RR Interval: 706 P-R Interval: 180 QRSD Interval: 84 QT Interval: 392 QTC Interval: 467 P [place]: 83 QRS [place]: 76 T Wave [place]: 74 EKG Severity - ABNORMAL ECG - EKG Impression: SINUS RHYTHM EKG Impression: LOW VOLTAGE IN FRONTAL LEADS EKG Impression: CONSIDER ANTEROSEPTAL INFARCT EKG Impression: BORDERLINE T WAVE ABNORMALITIES Electronically Signed By: Navarro Álvarez 10-Feb-2018 10:21:01
[2018-02-09] MEDS: ALBUMIN 5% 250 ML IV PRN ×2 (16:20→17:33)
[2018-02-09] MEDS: MILRINONE/DEXTROSE 100 ML IV SCH ×2 (16:53→21:51)
[2018-02-09] MEDS ORDERED: SODIUM BICARBONATE 50 MEQ/50 ML SYR ONE (18:05)
[2018-02-09] MEDS ORDERED: SODIUM BICARBONATE 50 MEQ/50 ML SYR IVP ONE ×2 (18:30→20:45)
[2018-02-09] MEDS: HYDROmorphONE/DILAUDID 1 MG/ML INJ IVP PRN (19:25)
[2018-02-09 20:55] LABS: INR 2.01 (0.83-1.16); PROTIME(PATIENT) 22.8 SEC (12.0-15.0)
[2018-02-09] MEDS ORDERED: CHLORHEXIDINE GLUCONATE 15 ML UDL PO SCH (21:00)
[2018-02-09] MEDS ORDERED: FAMOTIDINE 20 MG/NACL 50 ML IV SCH (21:00)
[2018-02-09] MEDS: CHLORHEXIDINE GLUCONATE 15 ML UDL PO SCH (21:20)
[2018-02-09] MEDS: ceFAZolin 2 GM/DEXTROSE 100 ML IV SCH (21:20)
[2018-02-09] MEDS: FAMOTIDINE 20 MG/NACL 50 ML IV SCH (21:20)
--- NOTE | 2018-02-09 22:37 | GOP ---
[f rep st] OPERATIVE REPORT DATE OF OPERATION: 02/09/2018 SURGEON: Rachael Steve MD NEUROSURGEON: Rachael Steve MD. SENIOR CLINICAL DATA MANAGER: MONSERRAT Alfonso. ANESTHESIA: Type general. PREOPERATIVE DIAGNOSIS: 1. Paroxysmal atrial fibrillation. 2. Severe multivessel coronary artery disease. POSTOPERATIVE DIAGNOSIS: 1. Paroxysmal atrial fibrillation. 2. Severe multivessel coronary artery disease. PROCEDURE PERFORMED: 1. Median sternotomy. 2. Endoscopic saphenous vein harvesting from the bilateral upper leg. 3. Epiaortic ultrasound. 4. Total cardiopulmonary bypass. 5. Bilateral pulmonary vein isolation utilizing radiofrequency ablation. 6. Left atrial appendage ligation utilizing 35 mm AtriClip device. 7. Coronary artery bypass grafting x4 (LEOS to LAD, saphenous vein graft to PDA, saphenous vein manuel t to OM1 and OM2 in sequence). 8. Placement of 2 temporary right ventricular epicardial pacing wires. FINDINGS: The LEOS was noted to be adequate in size with excellent flow. The LAD was approximately 1.75 mm, OM1 1.75 mm, OM2 1.25 mm, PDA 1.5 mm. SPECIMENS: None. ESTIMATED BLOOD LOSS: 500 mL. INDICATIONS: The patient is a 58-year-old male who presented to the emergency department secondary t o chest pain while chopping wood. Over the past few months, he has had a few episodes similar to thi s; however, this was lasting longer than usual which prompted concern for an emergency room visit. F urther workup ultimately ended with cardiac catheterization showing severe multivessel coronary arter y disease and the patient was referred for surgical revascularization. Also noted on admission was a trial fibrillation, which was restored to normal sinus rhythm with chemical cardioversion. The patie nt was seen preoperatively, where the risks, benefits and alternatives were detailed to him and [employer] [facility] consent was obtained. DESCRIPTION OF PROCEDURE: The patient was brought into the operating room and placed on the operatin g room table in the supine position. General anesthesia was induced and the airway was secured with an endotracheal tube. Once appropriate anesthesia monitoring lines as well as a Gooden catheter were placed, the patient's chest, abdomen and bilateral lower extremities were then prepped and draped in the standard surgical fashion. A surgical timeout was performed and administration of prophylactic a ntibiotics assured prior to initiating the procedure. A standard median sternotomy incision was made and the sternum was divided using a pneumatic saw. Th e left pleural space was entered and the left internal mammary artery was harvested from its origin t o its bifurcation using electrocautery and a no-touch technique. Concurrently, the left greater saph enous vein was harvested using an endoscopic harvesting technique. The vein below the knee was noted to be unusable and therefore the greater saphenous vein in the right thigh was harvested as well uti lizing an endoscopic technique. Both pieces of the vein were prepared with gentle distention and lig ation of side branches. The leg incisions were then closed in 2 layers with absorbable suture. The pericardium was opened and the patient was systemically heparinized. The internal mammary artery was then divided distally and the remnant was ligated using Hemoclips. There was brisk flow noted t hrough the mammary vessel and the pedicle was controlled with a Bulldog clamp. The left side of the pericardium was then opened to accommodate the mammary pedicle. After assuring a plaque-free cannula tion and cross clamp zone utilizing the epiaortic ultrasound, the ascending aorta was cannulated thro ugh 2 concentric pursestring sutures, which were secured using a David tourniquet. A dual change ve nous cannula was then inserted into the right atrial appendage through a pursestring suture and also secured using a David tourniquet. The retrograde coronary sinus catheter was placed through a separ ate right atrial pursestring as well as an antegrade cardioplegia needle in the ascending aorta. The right-sided pulmonary veins were then circumferentially dissected free. Then utilizing the AtriCure radiofrequency ablation device, the right-sided pulmonary veins were isolated. This was done with m ultiple firings to achieve 3 firings less than 10 seconds. This was done in 3 separate locations to form a Z-line. Once the right-sided pulmonary vein isolation was performed, cardiopulmonary bypass w as then initiated. The left-sided pulmonary veins were then circumferentially dissected free and rad iofrequency ablation performed on the left-sided pulmonary veins to achieve isolation. In similar fa shion to the right, multiple firings were carried out to achieve 3 firing less than 10 seconds perfor med in 3 separate locations to form a Z-line. Finally, the left atrial appendage was identified and sized. The 35 mm AtriClip device was chosen and deployed to achieve left atrial appendage ligation. The aorta was then cross-clamped. Antegrade and retrograde cold blood cardioplegia were then admini stered and continued intermittently throughout the procedure. Diastolic arrest was achieved and the aortic needle converted to a root vent. The PDA target was then identified. An arteriotomy was made on the vessel and an end-to-side anastom osis fashioned with a reversed saphenous vein graft using 7-0 Prolene suture in running fashion. The OM2 target was then identified and arteriotomy made on the vessel. An end-to-side anastomosis was f ashioned with a reversed saphenous vein graft using 7-0 Prolene suture in running fashion. Next, the OM1 target was identified and exposed. An arteriotomy was made on the vessel and a side-to -side anastomosis fashion with the reversed saphenous vein graft supplying the OM2 artery; the anasto mosis was performed using 7-0 Prolene suture in running fashion. Finally, the LAD target was identif ied and exposed. An arteriotomy was made on the vessel and an end-to-side anastomosis fashioned with the free end of the internal mammary artery using 8-0 Prolene suture in running fashion. The Bulldo g clamp was then released from the PRIETO and flow established to the LAD. The patient was then rewarmed and the aorta cross-clamp was removed. The retrograde catheter was rem georgi as well and its pursestring suture tired down. A partial occluding clamp was then placed on the ascending aorta. The heart then began to beat normal sinus rhythm. Two aortotomies were then made using a knife and punch to perform the proximal anastomosis. Each proximal anastomosis was created i n a side-to-end configuration using 5-0 Prolene suture in running fashion to secure each vein graft t o the aorta. The cross-clamp was then removed, bypass graft deaired and flow established to the [facility] coronary arteries. Two temporary ventricular pacing wires were then placed on the right ventricle and brought to the skin surface of the left subcostal margin. The patient was then weaned from cardiopulmonary bypass without mechanical support. Systemic heparin ization was then reversed with Protamine sulfate. The venous cannula was removed and its pursestring suture tied down. The aortic cannula was then removed and its pursestring sutures were both tied do wn. All suture lines and surgical sites were made to be hemostatic. Two bypass markers were then pl aced on the ascending aorta, around the proximal anastomosis. The graft marker supplying the PDA flaca eared to be somewhat tight around the ostium of the proximal graft and therefore the graft marker was cut out. During this process, a small venotomy was made on the proximal anastomosis resulting in bl eeding from the proximal anastomosis. Therefore, 5000 units of heparin were administered. A partial occluding clamp was placed on the aorta once again to control this bleeding and this was fixed with 5-0 Prolene suture placed in a aupybw-je-dyrvo fashion. The patient was placed in Trendelenburg posi tion and the partial occluding clamp removed and the bypass graft deaired. However during this, I di d have some concern that the back wall of the vein was snagged by the repair suture and therefore the partial occluding clamp is placed back on the aorta and th repair suture removed and another Prolene suture placed with better results. Once again, the partial occluding clamp was removed and the bypa ss graft deaired. Protamine was administered to reverse the low dose heparin that was given. Once again all suture lines and surgical sites were inspected and made to be hemostatic. A 36-Swedish mediastinal left pleural chest tube was placed. The sternum was then closed using stainless steel w ires in a simple aptiyd-qh-tyuct fashion. The fascia at the linea was then closed using kechvh-xc-vr ght #1 Vicryl sutures. The presternal fascia, subcutaneous tissues and subcuticular tissues were all closed with in multiple layers with absorbable suture. Sterile dressings were applied and the chest tubes were connected to suction drainage. The patient remained intubated and was transferred to the ICU in stable condition. At the end of the operation, all sponge, needle and instrument counts were noted to be correct. DRAINS: A 36-Swedish chest tube x2 (mediastinal and left pleural). COMPLICATIONS: None. /[id number]/MODL
[2018-02-10 00:36] LABS: INR 1.33 (0.83-1.16); PROTIME(PATIENT) 16.7 SEC (12.0-15.0)
[2018-02-10] MEDS: HYDROmorphONE/DILAUDID 1 MG/ML INJ IVP PRN ×2 (01:37→22:55)
[2018-02-10] MEDS: MILRINONE/DEXTROSE 100 ML IV SCH (02:32)
[2018-02-10] MEDS: DEXMEDETOMIDINE IN 0.9 % NACL 50 ML IV SCH ×2 (02:33→05:56)
[2018-02-10] MEDS ORDERED: niCARdipine/NACL 200 ML IV SCH (04:00)
[2018-02-10] MEDS: ceFAZolin 2 GM/DEXTROSE 100 ML IV SCH ×3 (05:29→22:30)
[2018-02-10 05:35] LABS: PLATELET COUNT 114 10^3/uL (150-400)
--- NOTE | 2018-02-10 07:16 | SOAPPROG ---
[facility]AL[facility] Progress Note Assessment/Plan: POD1 CABG x 4 (LEOS-LAD, SVG-PDA, SVG-OM1 and OM2 in sequence), PVI with radiofrequency, EMI ligation with AtriClip Severe 3V CAD with EF 40% s/p CABG x 4 - Off Milrinone and Levo since early this am. SBP 110-140's. - On ASA. Will resume Lipitor when taking adequate po. Will start low dose BB today. Paroxysmal atrial fibrillation s/p PVI and ligation of EMI - Currently in SR 80's. - Will start BB and Amio today. Acute blood loss anemia - Required transfusion of 3U PRBC with current stable at H&H 8.8/26. - Will check repeat CBC and follow. Left lung apex hematoma versus atelectasis - New finding on CXR this am. - Will check repeat CXR at noon to follow. Current tobacco abuse - Smoking cessation education. Acute postop coagulopathy - Transfused 3U FFP and 1 Cryo. - Continued chest tube drainage with 1700mls/12hrs, 2000mls/24hrs. No airleak appreciated this am. - Will check repeat INR today. Last INR 1.3. - Will keep chest tubes in place for today. Secondary thrombocytopenia d/t CPB - Improving s/p transfusion of 2pk Platelets. Plt count 114 (79). - Will check repeat CBC and follow. Renal function - Stable with normal renal lytes and good urine output. - Will follow. Deconditioning - Start PT/OT. - Encourage ambulation/IS. Plan: Metoprolol 12.5mg po BID Amiodarone 200mg po BID Repeat CBC and INR now Repeat CBC at 4pm CXR at noon to follow left apical hematoma versus atelectasis Subjective: Patient awake and alert, reports adequate pain control. Objective: Vital Signs Temp Pulse Resp BP Pulse Ox 36.2 C 84 13 108/66 100 02/10/18 06:00 02/10/18 06:00 02/10/18 06:00 02/10/18 06:00 02/10/18 06:00 Laboratory Results 02/10/18 05:15 02/10/18 05:15 02/09/18 02/10/18 02/11/18 05:59 05:59 05:59 Intake Total 1350 5141.4 Output Total 4205 Balance 1350 936.4 PT 16.7 SEC (12.0-15.0) H 02/10/18 00:10 INR 1.33 (0.83-1.16) H 02/10/18 00:10 Physical Exam - Physical Exam General Appearance: WD/WN, alert, no apparent distress Neck: supple Respiratory: lungs clear, decreased breath sounds (bases) Cardiac/Chest: regular rate, rhythm, other (sternum stable, sternal dressing intact) Abdomen: non-tender, soft, other (non-distended, hypoactive BS) Skin: warm/dry Extremities: other (warm, no edema, leg incisions c/d/i) Neuro/Psych: alert, normal mood/affect, oriented x 3 ICD10 Worksheet Patient Problems: Problems Problem Status Onset Acute blood loss anemia Acute Atrial fibrillation Acute CAD, multiple vessel Acute Ischemic cardiomyopathy Acute S/P CABG x 4 Acute ~02/09/18 S/P ablation of atrial fibrillation Acute ~02/09/18
[2018-02-10] MEDS ORDERED: PROTOCOL POTASSIUM 1 DOSE MISC PRN (09:09)
[2018-02-10] MEDS ORDERED: PROTOCOL MAGNESIUM 1 DOSE IV PRN (09:09)
[2018-02-10] MEDS ORDERED: PROTOCOL K PHOSPHATE 1 DOSE IV PRN (09:09)
[2018-02-10] MEDS ORDERED: PROTOCOL CALCIUM 1 DOSE IV PRN (09:09)
[2018-02-10] MEDS ORDERED: POTASSIUM Cl (KCl) 50 ML IV ONE (09:21)
[2018-02-10] MEDS: FAMOTIDINE 20 MG/NACL 50 ML IV SCH ×2 (09:35→20:25)
[2018-02-10] MEDS: NICOTINE 7 MG/24 HR PATCH TD SCH (09:35)
[2018-02-10] MEDS: MUPIROCIN 2% 22 GM OINT NS SCH ×2 (09:36→22:19)
[2018-02-10] MEDS: CHLORHEXIDINE GLUCONATE 15 ML UDL PO SCH ×2 (09:36→20:25)
[2018-02-10] MEDS ORDERED: PHYTONADIONE 10 MG in NS 50 ML IV ONE (10:15)
[2018-02-10 10:25] LABS: PLATELET COUNT 109 10^3/uL (150-400)
[2018-02-10 10:41] LABS: INR 1.14 (0.83-1.16); PROTIME(PATIENT) 14.8 SEC (12.0-15.0)
[2018-02-10] MEDS: ASPIRIN EC 325 MG TAB PO SCH (11:31)
[2018-02-10] MEDS: AMIODARONE HCL 200 MG TAB PO SCH ×2 (11:35→20:25)
[2018-02-10] MEDS: BEER 1 EACH EA PO SCH ×2 (13:00→20:00)
[2018-02-10] MEDS: HYDROCODONE/APAP 5/325 TAB PO PRN ×2 (14:27→20:25)
--- NOTE | 2018-02-10 16:06 | ASMTCMCOM ---
CM Note CM Note Notes: Pt lives in a trailer up [facility] [address], lives w/developmentally delayed roomate Reynold Bah [phone] (text only). Their landlord Nelson Diop [phone] runs them into town for groceries. Pt has a hx of nicotine and etoh use. PT recommending SNF, OT still pending but pt may not have insurance. He was recently seen by [facility] for Medicaid application,CM w/f. DC Plan: TBD Date Signed: 02/10/2018 04:05 PM Electronically Signed By:Heidy Turner RN
[2018-02-10] MEDS ORDERED: FUROSEMIDE 20 MG/2 ML VIAL IV ONE (17:45)
[2018-02-10] MEDS: LORazepam 1 MG TAB PO PRN (20:25)
[2018-02-10] MEDS ORDERED: METOPROLOL TARTRATE 25 MG TAB PO SCH (21:00)
[2018-02-11] MEDS: HYDROmorphONE/DILAUDID 1 MG/ML INJ IVP PRN ×2 (04:06→23:15)
[2018-02-11] MEDS: HYDROCODONE/APAP 5/325 TAB PO PRN ×2 (04:06→23:15)
[2018-02-11] MEDS: LORazepam 1 MG TAB PO PRN (04:09)
[2018-02-11] MEDS: ceFAZolin 2 GM/DEXTROSE 100 ML IV SCH (06:19)
[2018-02-11] MEDS ORDERED: MAGNESIUM SULF 1 GM/DEXTROSE 100 ML IV ONE (06:20)
--- NOTE | 2018-02-11 07:15 | SOAPPROG ---
AMALIA Progress Note Assessment/Plan: POD2 CABG x 4 (LEOS-LAD, SVG-PDA, SVG-OM1 and OM2 in sequence), PVI with radiofrequency, EMI ligation with AtriClip Severe 3V CAD with EF 40% s/p CABG x 4 - Off inotropic support since early yesterday am. SBP 110-130's. - On ASA, Lipitor and Metoprolol. Will start Lasix today. Paroxysmal atrial fibrillation s/p PVI and ligation of EMI - Currently in SR 90's. - On po Amio and Metoprolol. - Will increase Metoprolol to 25mg BID. Acute blood loss anemia - Required transfusion of 3U PRBC postop. Currently stable with H&H 8.5/24.4 ( 8.9/24.8). Transfusion not indicated today. - Will follow. Left lung apex hematoma versus atelectasis - Improving. - Continue to encourage ambulation/IS. - Will check CXR in am. Current tobacco abuse - Smoking cessation education. Acute postop coagulopathy - Transfused 3U FFP and 1 Cryo postop. - Improved chest tube drainage with 180mls/12hrs, 995mls/24hrs. No airleak appreciated this am. - Resolved with last INR 1.1. - Will keep chest tubes in place for today. Secondary thrombocytopenia d/t CPB - S/p transfusion of 2pk Platelets postop. Plt count 92 (109). - Will check CBC in am. Renal function - Stable with normal renal lytes and good urine output. - D/c ana today. - Will follow. Deconditioning - Continue PT/OT. - Encourage ambulation/IS. Plan: Increase Metoprolol to 25mg po BID Lasix 20mg IV daily/KCl 10mEq po daily CXR in am Keep chest tubes in place Keep PW in place D/c ana D/c Anastasia after Lasix Transfer to SDU today Subjective: Patient without complaints. Reports that he does not have any pain. Objective: Vital Signs Temp Pulse Resp BP Pulse Ox 37.3 C 91 18 138/90 H 92 02/11/18 04:00 02/11/18 07:00 02/11/18 06:00 02/11/18 07:00 02/11/18 07:00 Laboratory Results 02/11/18 05:25 02/11/18 05:25 02/10/18 02/11/18 02/12/18 05:59 05:59 05:59 Intake Total 5141.4 2503 Output Total 4205 3825 Balance 936.4 -1322 PT 14.8 SEC (12.0-15.0) 02/10/18 10:00 INR 1.14 (0.83-1.16) 02/10/18 10:00 Physical Exam - Physical Exam General Appearance: WD/WN, alert, no apparent distress Neck: supple Respiratory: decreased breath sounds (bases), crackles (right base) Cardiac/Chest: other (No murmurs, rubs, gallops. Sternum stable. Sternal dressing c/d/i. ) Abdomen: normal bowel sounds, non-tender (non-distended), soft Skin: normal color, warm/dry Extremities: other (Warm, no lower extremity edema. Bilat leg incisions c/d/i. ) Neuro/Psych: alert, normal mood/affect, oriented x 3 ICD10 Worksheet Patient Problems: Problems Problem Status Onset Acute blood loss anemia Acute Atrial fibrillation Acute CAD, multiple vessel Acute Ischemic cardiomyopathy Acute S/P CABG x 4 Acute ~02/09/18 S/P ablation of atrial fibrillation Acute ~02/09/18
[2018-02-11] MEDS: ASPIRIN EC 325 MG TAB PO SCH (08:36)
[2018-02-11] MEDS: NICOTINE 7 MG/24 HR PATCH TD SCH (08:36)
[2018-02-11] MEDS: METOPROLOL TARTRATE 25 MG TAB PO SCH ×2 (08:36→20:35)
[2018-02-11] MEDS: AMIODARONE HCL 200 MG TAB PO SCH (08:36)
[2018-02-11] MEDS ORDERED: POTASSIUM CL 10 MEQ TAB PO SCH (10:00)
[2018-02-11] MEDS ORDERED: FUROSEMIDE 20 MG/2 ML VIAL IVP SCH ×2 (10:00→19:30)
[2018-02-11] MEDS: FAMOTIDINE 20 MG TAB PO SCH ×2 (10:01→20:35)
[2018-02-11] MEDS: ATORVASTATIN CALCIUM 10 MG TAB PO SCH (10:01)
[2018-02-11] MEDS: SENNOSIDES/DOCUSATE SODIUM TAB PO SCH ×2 (10:01→20:35)
[2018-02-11] MEDS: THIAMINE HCL 100 MG TAB PO SCH (10:02)
[2018-02-11] MEDS: MUPIROCIN 2% 22 GM OINT NS SCH (10:02)
[2018-02-11] MEDS: CHLORHEXIDINE GLUCONATE 15 ML UDL PO SCH ×2 (10:02→20:35)
[2018-02-11] MEDS: BEER 1 EACH EA PO SCH ×3 (10:28→20:35)
--- NOTE | 2018-02-11 15:01 | POSTANESTH ---
Post Anesthetic Evaluation Cardiovascular Status: Normal, Stable Respiratory Status: Tx Decrease in SpO2 Level of Consciousness/Mental Status: Can Participate in Eval Nausea/Vomiting Control: Adequate, Prn Tx Ordered Complications Possibly Related to Anesthesia: None Noted
[2018-02-11] MEDS ORDERED: AMIODARONE A.FIB-LOAD DOSE(ORDER 1/3) PREMIX IV ONE (17:00)
[2018-02-11] MEDS ORDERED: AMIODARONE A.FIB-6HR INFSN (ORDER 2/3) PREMIX IV ONE (17:00)
[2018-02-11] MEDS ORDERED: AMIODARONE A.FIB-18HR INFSN (ORDER 3/3) IV ONE (23:15)
[2018-02-12] MEDS: HYDROmorphONE/DILAUDID 1 MG/ML INJ IVP PRN (02:08)
[2018-02-12] MEDS: HYDROCODONE/APAP 5/325 TAB PO PRN ×2 (05:45→13:28)
--- NOTE | 2018-02-12 07:29 | SOAPPROG ---
SOAP Progress Note Assessment/Plan: POD#3: CABG x 4 (LEOS-LAD, SVG-PDA, SVG-OM1 and OM2 in sequence), PVI with radiofrequency, EMI ligation with AtriClip Severe 3V CAD with EF 40% s/p CABG x 4 - Continue ASA, Lipitor and Metoprolol - CTs removed today Paroxysmal atrial fibrillation s/p PVI and ligation of EMI with post-op BECKA - Continue Amiodarone and Metoprolol - Coumadin deferred d/t h/o ETOH and poor compliance with personal healthcare. Eliquis cost is prohibitive d/t lack of insurance. Will use ASA 325 mg solely for AC - Pacing wires removed today Acute blood loss anemia - HCT stable Left lung apex hematoma versus atelectasis - Improving - Continue to encourage ambulation/IS. Current tobacco abuse - Smoking cessation education. Acute postop blood loss anemia with coagulopathy and thrombocytopenia - Resolved DVT prophylaxis - Heparin SQ/SCDs Subjective: Denies pain/SOB. Objective: Vital Signs Temp Pulse Resp BP Pulse Ox 36.9 C 84 16 121/83 H 93 02/12/18 07:17 02/12/18 07:17 02/12/18 07:17 02/12/18 07:17 02/12/18 07:17 Laboratory Results 02/12/18 05:45 02/12/18 05:45 02/11/18 02/12/18 02/13/18 05:59 05:59 05:59 Intake Total 2503 2902 Output Total 3825 1065 Balance -1322 1837 PT 14.8 SEC (12.0-15.0) 02/10/18 10:00 INR 1.14 (0.83-1.16) 02/10/18 10:00 Physical Exam - Physical Exam General Appearance: WD/WN, alert, no apparent distress EENT: No scleral icterus (R), No scleral icterus (L) Neck: normal inspection Respiratory: No respiratory distress Cardiac/Chest: regular rate, rhythm Abdomen: non-tender, soft, No distended Skin: normal color, warm/dry Extremities: pedal edema Neuro/Psych: no motor/sensory deficits, alert, normal mood/affect, oriented x 3 ICD10 Worksheet Patient Problems: Problems Problem Status Onset Acute blood loss anemia Acute Atrial fibrillation Acute CAD, multiple vessel Acute Ischemic cardiomyopathy Acute S/P CABG x 4 Acute ~02/09/18 S/P ablation of atrial fibrillation Acute ~02/09/18
[2018-02-12] MEDS ORDERED: MAGNESIUM SULF 1 GM/DEXTROSE 100 ML IV ONE (08:25)
[2018-02-12] MEDS ORDERED: POTASSIUM Cl (KCl) 50 ML IV ONE (08:25)
[2018-02-12] MEDS: NICOTINE 7 MG/24 HR PATCH TD SCH (08:49)
[2018-02-12] MEDS: FAMOTIDINE 20 MG TAB PO SCH ×2 (08:49→20:45)
[2018-02-12] MEDS: METOPROLOL TARTRATE 25 MG TAB PO SCH (08:49)
[2018-02-12] MEDS: POTASSIUM CL 20 MEQ TAB PO SCH (08:49)
[2018-02-12] MEDS: ATORVASTATIN CALCIUM 10 MG TAB PO SCH (08:49)
[2018-02-12] MEDS: THIAMINE HCL 100 MG TAB PO SCH (08:49)
[2018-02-12] MEDS: ASPIRIN EC 325 MG TAB PO SCH (08:49)
[2018-02-12] MEDS ORDERED: traMADol 50 MG TAB PO PRN (08:53)
[2018-02-12] MEDS ORDERED: BEER 1 EACH EA PO PRN (08:57)
[2018-02-12] MEDS: SENNOSIDES/DOCUSATE SODIUM TAB PO SCH ×2 (08:58→20:44)
[2018-02-12] MEDS: METOPROLOL TARTRATE 50 MG TAB PO SCH ×2 (08:58→20:45)
[2018-02-12] MEDS ORDERED: NEOMY SULF/BACITRAC ZN/POLY 30 GM OINTTUBE TP SCH (09:00)
[2018-02-12] MEDS: AMIODARONE HCL 200 MG TAB PO SCH (20:45)
--- NOTE | 2018-02-13 07:47 | SOAPPROG ---
SOAP Progress Note Assessment/Plan: POD#4: CABG x 4 (LEOS-LAD, SVG-PDA, SVG-OM1 and OM2 in sequence), PVI with radiofrequency, EMI ligation with AtriClip Severe 3V CAD with EF 40% s/p CABG x 4 - Continue ASA, Lipitor and Metoprolol Paroxysmal atrial fibrillation s/p PVI and ligation of EMI with post-op BECKA - Continue Amiodarone and Metoprolol - Coumadin deferred d/t h/o ETOH and poor compliance with personal healthcare. Eliquis cost is prohibitive d/t lack of insurance. Will use ASA 325 mg solely for AC Acute blood loss anemia - HCT stable Left lung apex hematoma versus atelectasis - Improving - Continue to encourage ambulation/IS - Recheck CXR tomorrow Current tobacco abuse - Smoking cessation education. Acute postop blood loss anemia with coagulopathy and thrombocytopenia - Resolved DVT prophylaxis - Lovenox SQ/SCDs Subjective: Feels greats. Appreciate of care. If possible would like go home as has quite a bit of support from roommate/neighbors. Objective: Vital Signs Temp Pulse Resp BP Pulse Ox 36.6 C 75 16 103/70 91 L 02/13/18 04:00 02/13/18 04:00 02/13/18 04:00 02/13/18 04:00 02/13/18 06:55 Laboratory Results 02/12/18 05:45 02/13/18 06:00 02/12/18 02/13/18 02/14/18 05:59 05:59 05:59 Intake Total 2902 746 Output Total 1065 900 Balance 1837 -154 PT 14.8 SEC (12.0-15.0) 02/10/18 10:00 INR 1.14 (0.83-1.16) 02/10/18 10:00 Physical Exam - Physical Exam General Appearance: WD/WN, alert, no apparent distress EENT: No scleral icterus (R), No scleral icterus (L) Neck: normal inspection Respiratory: No respiratory distress Cardiac/Chest: regular rate, rhythm Abdomen: non-tender, soft, No distended Skin: normal color, warm/dry Extremities: No pedal edema Neuro/Psych: no motor/sensory deficits, alert, normal mood/affect, oriented x 3 ICD10 Worksheet Patient Problems: Problems Problem Status Onset Acute blood loss anemia Acute Atrial fibrillation Acute CAD, multiple vessel Acute Ischemic cardiomyopathy Acute S/P CABG x 4 Acute ~02/09/18 S/P ablation of atrial fibrillation Acute ~02/09/18
[2018-02-13] MEDS ORDERED: FUROSEMIDE 40 MG/4 ML VIAL IVP SCH (09:00)
[2018-02-13] MEDS: FAMOTIDINE 20 MG TAB PO SCH ×2 (09:44→19:56)
[2018-02-13] MEDS: ATORVASTATIN CALCIUM 10 MG TAB PO SCH (09:44)
[2018-02-13] MEDS: ASPIRIN EC 325 MG TAB PO SCH (09:44)
[2018-02-13] MEDS: AMIODARONE HCL 200 MG TAB PO SCH ×2 (09:44→19:55)
[2018-02-13] MEDS: ENOXAPARIN 40 MG/0.4 ML SYR SC SCH (09:44)
[2018-02-13] MEDS: POTASSIUM CL 20 MEQ TAB PO SCH (09:45)
[2018-02-13] MEDS: SENNOSIDES/DOCUSATE SODIUM TAB PO SCH ×2 (09:45→19:56)
[2018-02-13] MEDS: THIAMINE HCL 100 MG TAB PO SCH (09:45)
[2018-02-13] MEDS: NICOTINE 7 MG/24 HR PATCH TD SCH (09:45)
[2018-02-13] MEDS: METOPROLOL TARTRATE 50 MG TAB PO SCH ×2 (09:45→19:55)
[2018-02-13] MEDS ORDERED: AMIODARONE HCL 100 ML IV ONE (11:00)
[2018-02-13] MEDS ORDERED: NS 500 ML IV ONE (13:00)
--- NOTE | 2018-02-13 17:09 | ASMTCMCOM ---
CM Note CM Note Notes: Per CV surgery CM met with patient to review dc plan of care. He is medicaid pending and would need a ULTC 100 if he was agreeable to 30 day stay at SNF. Per the patient he is not interested in this and wants to return home. 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 CM available if needs arise. Plan: Home with outpatient therapy. Date Signed: 02/13/2018 05:08 PM Electronically Signed By:Jenelle Woodson RN
--- NOTE | 2018-02-14 07:04 | SOAPPROG ---
SOAP Progress Note Assessment/Plan: Assessment: POD#5 CABG x 4 (LEOS-LAD, SVG-PDA, SVG-OM1 and OM2 in sequence), PVI with radiofrequency, EMI ligation with AtriClip Sx severe 3V CAD with EF 40% - s/p CABG x 4 - Tubes and wires out - Secondary prevention with ASA, Lipitor and Metoprolol Paroxysmal atrial fibrillation - s/p PVI and ligation of EMI - Postop rapid AF responsive to amiodarone and escalating doses of metoprolol - [id number] score of 1. Antithrombotic prophylaxis w full strength ASA. Coumadin deferred d/t h/o ETOH and compliance concerns. Cost of Eliquis deemed prohibitive d/t lack of insurance. Acute expected blood loss anemia with thrombocytopenia and coagulopathy - Stable s/p 3u PRBC, 3u FFP, 2u Plt, and 1u cryo. - VTE prophylaxis with lovenox and SCDs. Left lung apex hematoma versus atelectasis - Improving by serial CXRs - No supplemental O2 requirement. Current tobacco abuse - Smoking cessation education provided. - Agreeable to try to quit w aid of nicotine patch. Plan: Ok for discharge home. 30 day stay at SNF (for Medicaid approval) declined. Instructions re diet, meds, activity, wound care and f/u to be reviewed. 02/14/18 07:06 Subjective: Feels well. Tolerating light activity with ease. Satisfactory analgesia. Wants to go home. Objective: Vital Signs Temp Pulse Resp BP Pulse Ox 36.8 C 83 16 100/59 L 92 02/14/18 04:00 02/14/18 04:00 02/14/18 04:00 02/14/18 04:00 02/14/18 04:00 Laboratory Results 02/12/18 05:45 02/13/18 06:00 02/13/18 02/14/18 02/15/18 05:59 05:59 05:59 Intake Total 746 1500 Output Total 900 900 Balance -154 600 PT 14.8 SEC (12.0-15.0) 02/10/18 10:00 INR 1.14 (0.83-1.16) 02/10/18 10:00 Rhythm mostly sinus 80s. Occ bursts AF w CVR. No hypotension. Off O2. Adequate fluid balance. Physical Exam - Physical Exam General Appearance: alert, no apparent distress Respiratory: lungs clear Cardiac/Chest: regular rate, rhythm, other (Sternum grossly stable. Sternotomy and CT sites CDI) Abdomen: non-tender, soft Skin: warm/dry Extremities: swelling (trace perimalleolar), other (B/L venotomies CDI) ICD10 Worksheet Patient Problems: Problems Problem Status Onset Acute blood loss anemia Acute Atrial fibrillation Acute CAD, multiple vessel Acute Ischemic cardiomyopathy Acute S/P CABG x 4 Acute ~02/09/18 S/P ablation of atrial fibrillation Acute ~02/09/18
[2018-02-14] MEDS: FAMOTIDINE 20 MG TAB PO SCH (09:04)
[2018-02-14] MEDS: METOPROLOL TARTRATE 50 MG TAB PO SCH ×2 (09:04→19:50)
[2018-02-14] MEDS: ASPIRIN EC 325 MG TAB PO SCH (09:04)
[2018-02-14] MEDS: THIAMINE HCL 100 MG TAB PO SCH (09:04)
[2018-02-14] MEDS: ATORVASTATIN CALCIUM 10 MG TAB PO SCH (09:04)
[2018-02-14] MEDS: AMIODARONE HCL 200 MG TAB PO SCH ×2 (09:04→19:49)
[2018-02-14] MEDS: NICOTINE 7 MG/24 HR PATCH TD SCH (09:04)
[2018-02-14] MEDS: ENOXAPARIN 40 MG/0.4 ML SYR SC SCH (09:09)
[2018-02-14] MEDS: SENNOSIDES/DOCUSATE SODIUM TAB PO SCH (09:09)
[2018-02-14] MEDS ORDERED: AMIODARONE HCL 100 ML IV ONE (10:30)
[2018-02-14] MEDS ORDERED: traMADol 50 MG TAB PO PRN (12:40)
[2018-02-14] MEDS ORDERED: SENNOSIDES/DOCUSATE SODIUM TAB PO PRN (21:00)
--- NOTE | 2018-02-15 06:59 | SOAPPROG ---
SOAP Progress Note Assessment/Plan: Assessment: POD#6 CABG x 4 (LEOS-LAD, SVG-PDA, SVG-OM1 and OM2 in sequence), PVI with radiofrequency, EMI ligation with AtriClip Sx severe 3V CAD with EF 40% - s/p CABG x 4 - Tubes and wires out - Secondary prevention with ASA, Lipitor and Metoprolol Paroxysmal atrial fibrillation - s/p PVI and ligation of EMI - Postop PAF with VVR. Improved rate control on escalating doses of amio and metoprolol. - [id number] score of 1-2 (CAD +/- HTN). Antithrombotic prophylaxis w full strength ASA. Coumadin deferred d/t h/o ETOH and compliance concerns. Cost of Eliquis deemed prohibitive d/t lack of insurance. Acute expected blood loss anemia with thrombocytopenia and coagulopathy - Stable s/p 3u PRBC, 3u FFP, 2u Plt, and 1u cryo. - VTE prophylaxis with lovenox and SCDs. Left lung apex hematoma versus atelectasis - Improving by serial CXRs - No supplemental O2 requirement. Current tobacco abuse - Smoking cessation education provided. - Agreeable to try to quit w aid of nicotine patch. Plan: Replete K. Start Fe suppl. Ok for discharge home this afternoon if rhythm remains stable. 02/15/18 06:55 Subjective: Cont to feel well. No acute concerns. Objective: Vital Signs Temp Pulse Resp BP Pulse Ox 37.3 C 75 16 114/68 96 02/15/18 04:00 02/15/18 04:00 02/15/18 04:00 02/15/18 04:00 02/15/18 04:00 Laboratory Results 02/15/18 05:00 02/15/18 05:00 02/14/18 02/15/18 02/16/18 05:59 05:59 05:59 Intake Total 1500 1150 Output Total 900 150 Balance 600 1000 PT 14.8 SEC (12.0-15.0) 02/10/18 10:00 INR 1.14 (0.83-1.16) 02/10/18 10:00 Sinus rhythm held since yest am. H/H slightly lower than expected. Borderline low K. Physical Exam - Physical Exam General Appearance: alert, no apparent distress Respiratory: normal breath sounds Cardiac/Chest: regular rate, rhythm, other (Sternotomy and CT sites CDI) Abdomen: non-tender, soft Skin: warm/dry Extremities: other (no visible edema) ICD10 Worksheet Patient Problems: Problems Problem Status Onset Acute blood loss anemia Acute Atrial fibrillation Acute CAD, multiple vessel Acute Ischemic cardiomyopathy Acute S/P CABG x 4 Acute ~02/09/18 S/P ablation of atrial fibrillation Acute ~02/09/18
[2018-02-15] MEDS ORDERED: POTASSIUM CL 20 MEQ TAB PO ONE (07:00)
[2018-02-15] MEDS: NICOTINE 7 MG/24 HR PATCH TD SCH (08:16)
[2018-02-15] MEDS: METOPROLOL TARTRATE 50 MG TAB PO SCH (08:17)
[2018-02-15] MEDS: AMIODARONE HCL 200 MG TAB PO SCH (08:17)
[2018-02-15] MEDS: THIAMINE HCL 100 MG TAB PO SCH (08:17)
[2018-02-15] MEDS: ATORVASTATIN CALCIUM 10 MG TAB PO SCH (08:17)
[2018-02-15] MEDS: ASPIRIN EC 325 MG TAB PO SCH (08:17)
[2018-02-15] MEDS ORDERED: FERROUS SULFATE 325 MG TAB PO SCH (09:00)
[2018-02-15 11:33] VITALS: BP 90/52
--- NOTE | 2018-02-15 13:20 | PDDCSUM ---
Discharge Summary Discharge Summary: DATE OF ADMISSION: 02/05/18 DATE OF DISCHARGE: 02/15/18 DISPOSITION: Home, self-care PRINCIPAL ADMISSION DIAGNOSES: Atrial fibrillation with rapid ventricular response PRINCIPAL DISCHARGE DIAGNOSES: 1. Alcohol withdrawal suspected 2. Remote anterior myocardial infarction 3. Severe multivessel coronary artery disease 4. Ischemic cardiomyopathy with mildly reduced LV systolic function 5. Carotid atherosclerosis 6. Status post coronary artery bypass grafting x 4 7. Status post bilateral pulmonary vein isolation 8. Status post AtriClip exclusion of the left atrial appendage 9. Acute expected blood loss anemia 10. Postoperative paroxysmal atrial fibrillation 11. Postoperative left pulmonary apical hematoma suspected HISTORY OF PRESENT ILLNESS: 58 yo male daily alcohol user with a 3 day hx of exertional chest pains evaluated in the ER for recurrent chest pain associated with dizziness. Found to be hypertensive and in rapid atrial fibrillation. Successfully converted back to sinus rhythm with metoprolol. No electrocardiographic or serologic evidence of ischemia. Admitted for further evaluation after echo demonstration of a mildly depressed LVEF with regional wall motion abnormalities concerning for an old anterior MO. PERTINENT PAST MEDICAL HISTORY: Tobacco abuse (up to 3 ppd x 45 yrs, reducing to 3 cigs daily over past year), alcohol dependence (consuming 6-8 beers daily); minor stroke in 2013 (neg neuro w/u by ER record, citing instead hyponatremia and elevated LFTs). MEDICATIONS ON ADMISSION: none ALLERGIES/SENSITIVITIES: NKDA CONSULTANTS: Cardiology (Nathan), CV surgery (Evi), Pulmonology/critical care () PROCEDURES/IMAGIN/23 (Himanshu): Transthoracic echocardiogram: Nl LV cavity size and thickness; mid inferior, inferoseptal and apical hypokinesis; LVEF 40%; LVDD; nl sized atria w mild MR & mild TR. 02/06 Lexiscan stress test: Graded exercise discontinued after 1 min d/t gait instability. MPI notable for moderate area of infarct involving apex, inferior and septal cole. LVEF 36%. 02/07 (Richard): Left heart catheterization with selective coronary angiography and left ventriculogram. Access right common femoral artery. Findings: Right dominant coronary system. Diffusely calcified coronaries. 100% mid LAD occlusion w distal reconstitution by [id number] collaterals. 50% ostial D1 stenosis; 80% mid LCX stenosis; 50% mid RCA stenosis; 60% ostial PDA stenosis; apical hypokinesis; LVEF 45%. 02/07 Carotid US: Mild plaquing bilateral carotid bifurcations. 02/09 (Evi): Coronary artery bypass grafting x 4 (LEOS-LAD, SV-PDA, SV sequentially to OM1 and OM2). Bilateral pulmonary vein isolation utilizing bipolar radiofrequency. Exclusion of the left atrial appendage with a 35 mm AtriClip. ABBREVIATED HOSPITAL COURSE BY ACTIVE PROBLEM LIST: 1. Sx severe CAD with ischemic cardiomyopathy, EF 40% - Old AMI by presence of LAD collaterals. Improved LV systolic fx s/p CABG. No prolonged vasoactive support. Adequate autodiuresis of moderate volume overoload. Secondary prevention with ASA, BB and statin. Insufficient BP for ACEI/ARB. 2. Paroxysmal atrial fibrillation - Preserved atrial size. Recurrent bouts of PAF s/p PVI. Improved rate control and duration of SR on escalating doses of amio and metoprolol. [id number] score of 1-2 (CAD +/- HTN). Antithrombotic prophylaxis w Coumadin or DOAC deferred given EMI excluded and hx ETOH abuse/ compliance concerns. 3. Acute expected blood loss anemia with thrombocytopenia and coagulopathy - Stable s/p 3u PRBC, 3u FFP, 2u Plt, and 1u cryo. Started on Fe suppl. 4. Postoperative left lung apical hematoma versus atelectasis - Possible suction tip injury. Steady improvement by serial CXRs. No supplemental O2 requirement. 5. Longstanding tobacco abuse - Smoking cessation education provided. Willing to quit w aid of nicotine patch. 6. Longstanding alcohol abuse - Without transaminitis or elev INR. Mild withdrawal symptoms present upon admission. CIWA protocol instituted but not triggered. Started on thiamine. Lifestyle modification encouraged. DISCHARGE CLINICAL INFORMATION: Sternum grossly stable. Sternotomy and bilateral venotomies CDI, sutured, + Dermabond. HR 70s. SBP 100s. SpO2 96% RA. Wt 4 kg above admission at 54.7 kilos. WBC 9.8, Hgb 8.2, HCT 23.9, Plt 225, Na 136, K 3.5, Cr 0.6 Lipids: TC 164, LDL 81, HDL 61, TG 110 TSH 3.1 DISCHARGE MEDICATIONS: NEW prescriptions: 1. Amiodarone 400 mg BID thru 02/21, then 200 mg BID thru 02/28, then 200 mg daily x 2 weeks. 2. Metoprolol tartrate 50 mg BID 3. Lipitor 10 mg daily 4. Thiamine 100 mg daily 5. Ferrous sulfate 325 mg daily x 2 weeks 6. Nicoderm CQ 7 mg/24hr patch once daily or as directed by PCP 7. Tramadol 50 mg one-half to one tab q 6-8 hrs prn incisional discomfort 8. OTC: ASA 325 mg daily; Tylenol up to 3,000 mg daily prn incisional discomfort FOLLOW UP APPOINTMENTS: 1. CV surgery: with Dr Membreno at [facility] on 02/20 at 10:00 am. 2. Cardiology: with Dr Ramos (or Nicole Evans PA-C) at [facility] within 4-6 weeks. Appointment to be established during surgical visit. 3. PCP: establish care for assistance with smoking and/or alcohol cessation. FOLLOW UP TESTING: CXR prior to surgical appointment.
--- NOTE | 2018-02-15 14:45 | ASMTLACE ---
KERRY Length of stay for Answers: 7-13 days current admission Acuity / Level of Answers: Yes Care: Did the patient have an inpatient admission? Comorbidities - select Answers: Cerebrovascular disease all that apply (CVA, TIA, aneurysms, vasc ular dementia) Coronary Artery Disease # of Emergency department Answers: 1-2 visits in the last 6 months Social determinants Answers: History of substance abuse (ETOH, street drugs, prescription drugs, etc.) Score: 15 Date Signed: 02/15/2018 02:44 PM Electronically Signed By:Reena Ramirez RN
--- NOTE | 2018-02-15 14:49 | ASDISCHSUM ---
Discharge Information Plan Status:Home with No Needs Medically Cleared to Leave:02/15/2018 Discharge Date:02/15/2018 CM D/C Disposition:Home, Routine, Self-Care ADT D/C Disposition:Home, Routine, Self-Care Projected Discharge Date:02/15/2018 Transportation at D/C:Friend Discharge Delay Reason: Follow-Up Date:02/15/2018 Discharge Slot: Final Diagnosis: Placement Information Patient Contact Information Contact Name:LEESA Relationship:Friend Address: Work Phone: City: [facility] Phone: State/HyprKey Code: Email: Financial Information Financial Class:Self-Pay Primary Plan Desc:SELF PAY Primary Plan Number: Secondary Plan Desc: Secondary Plan Number: Assessment Information LACE LACE Length of stay for Answers: 7-13 days current admission Acuity / Level of Answers: Yes Care: Did the patient have an inpatient admission? Comorbidities - select Answers: Cerebrovascular disease all that apply (CVA, TIA, aneurysms, vasc ular dementia) Coronary Artery Disease # of Emergency department Answers: 1-2 visits in the last 6 months Social determinants Answers: History of substance abuse (ETOH, street drugs, prescription drugs, etc.) Score: 15 Date Signed: 02/15/2018 02:44 PM Electronically Signed By:Reena Ramirez RN [facility] CM Progress Note CM Note CM Note Notes: 02/05/18 Pt admitted for RVR a fib, converted spontaneously today.Met with pt today. Lives [place] [facility] [place] [address] [facility] with roomate who has developmental delays - Reynold Bah text only. Landlord is Nelson Diop [phone]. Nelson runs them down to town monthly for groceries. 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 Pt has hx of nicotine and ETOH use. Resources provided including AA meeting times in [place]. Med data evaluated pt for medicaid application. Referred pt to [facility] who will follow up after discharge. Pt needs PCP. PT eval still pending. CM d/c plan: TBD CM to follow as needed. Date Signed: 02/05/2018 03:23 PM Electronically Signed By:Isi Caruso [facility] Progress Note CM Note CM Note Notes: CM spoke to Dr. Fleming regarding d/c POC. Pt is having a CABG tomorrow. [employer] submitted a Medicaid application on Monday. It may take 2-3 weeks for the Medicaid application to be processed. CM to follow for d/c needs. Plan: Most likely independent with cardiac rehab Date Signed: 02/08/2018 09:44 AM Electronically Signed By:DERRICK August [facility] Progress Note CM Note CM Note Notes: Pt lives in a trailer [place] [address], lives w/developmentally delayed roomate Reynold Bah [phone] (text only). Their landlord Nelson Diop [phone] runs them into town for groceries. Pt has a hx of nicotine and etoh use. PT recommending SNF, OT still pending but pt may not have insurance. He was recently seen by [employer] for Medicaid application,CM w/f. DC Plan: TBD Date Signed: 02/10/2018 04:05 PM Electronically Signed By:Heidy Turner RN [facility] CM Progress Note CM Note CM Note Notes: Per CV surgery CM met with patient to review dc plan of care. He is medicaid pending and would need a ULTC 100 if he was agreeable to 30 day stay at SNF. Per the patient he is not interested in this and wants to return home. 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 CM available if needs arise. Plan: Home with outpatient therapy. Date Signed: 02/13/2018 05:08 PM Electronically Signed By:Jenelle Woodson RN Case Management Discharge Plan Note Case Management Discharge Discharge Order Complete? Answers: Yes Patient to Obtain Answers: via MAP Medications Transportation Arranged Answers: Other Notes: Medicaid pending for meds. Provided MAP med s for a few days. Pt to private pay remainder Discharge Comments Notes: 02/15/2018 Case Management Note Pt discharged independent with follow up as directed. Referred pt to [facility] for outpatient case management follow up. Medicaid application is pending. No further case management needs identified. Date Signed: 02/15/2018 02:47 PM Electronically Signed By:Reena Ramirez RN Intervention Information
== END 2018-02-15 14:05 | disposition home or self-care (01) | DRG 234 ==
LOC: EDUNIT# → F2W 23:29 → OBSVTOIN 02-05 10:26 → F2N 02-09 08:35 → F2W 02-12 11:57
PROVIDERS: ADMIT Surgery; ATTEND Thoracic Surgery (Cardiothoracic Vascular Surgery)
PROC: 4A023N7 Measurement of Cardiac Sampling and Pressure, Left Heart, Percutaneous Approach (ICD-10-PCS; 2018-02-07)
PROC: B2151ZZ Fluoroscopy of Left Heart using Low Osmolar Contrast (ICD-10-PCS; 2018-02-07)
PROC: B2111ZZ Fluoroscopy of Multiple Coronary Arteries using Low Osmolar Contrast (ICD-10-PCS; 2018-02-07)
PROC: 06BQ4ZZ Excision of Left Saphenous Vein, Percutaneous Endoscopic Approach (ICD-10-PCS; principal; 2018-02-09 09:00)
PROC: 0212093 Bypass Coronary Artery, Three Arteries from Coronary Artery with Autologous Venous Tissue, Open Approach (ICD-10-PCS; principal; 2018-02-09 09:00)
PROC: 5A1221Z Performance of Cardiac Output, Continuous (ICD-10-PCS; principal; 2018-02-09 09:00)
PROC: 5A1223Z Performance of Cardiac Pacing, Continuous (ICD-10-PCS; principal; 2018-02-09 09:00)
PROC: 02L70CK Occlusion of Left Atrial Appendage with Extraluminal Device, Open Approach (ICD-10-PCS; principal; 2018-02-09 09:00)
PROC: B245ZZ4 Ultrasonography of Left Heart, Transesophageal (ICD-10-PCS; principal; 2018-02-09 09:00)
PROC: 06BP4ZZ Excision of Right Saphenous Vein, Percutaneous Endoscopic Approach (ICD-10-PCS; principal; 2018-02-09 09:00)
PROC: 055Y0ZZ Destruction of Upper Vein, Open Approach (ICD-10-PCS; principal; 2018-02-09 09:00)
PROC: 02100A9 Bypass Coronary Artery, One Artery from Left Internal Mammary with Autologous Arterial Tissue, Open Approach (ICD-10-PCS; principal; 2018-02-09 09:00)
DX: I25.119 Atherosclerotic heart disease of native coronary artery with unspecified angina pectoris (principal); I48.0 Paroxysmal atrial fibrillation; F10.230 Alcohol dependence with withdrawal, uncomplicated; I25.5 Ischemic cardiomyopathy; F17.210 Nicotine dependence, cigarettes, uncomplicated; D62 Acute posthemorrhagic anemia; D69.6 Thrombocytopenia, unspecified; R00.0 Tachycardia, unspecified; R25.1 Tremor, unspecified; J30.2 Other seasonal allergic rhinitis; I25.2 Old myocardial infarction; I65.29 Occlusion and stenosis of unspecified carotid artery; J95.861 Postprocedural hematoma of a respiratory system organ or structure following other procedure; J98.11 Atelectasis; Z86.73 Personal history of transient ischemic attack (TIA), and cerebral infarction without residual deficits; Z82.49 Family history of ischemic heart disease and other diseases of the circulatory system
CPT/HCPCS: 82435-PO; 82565-PO; 82947-PO; 83605-PO; 84132-PO; 84295-PO; 84484-PO; 84520-PO; 85014-PO; 96374; 97116-GP; 97162-GP; 97165-GO; 97530-GO; 97530-GP; 97535-GO; A9500; C1760; G0378; J0153; J0282; J0690; J1100; J1170; J1265; J1644; J1650; J1815; J1940; J2001; J2060; J2150; J2250; J2260; J2370; J2405; J2440; J2704; J2720; J2765; J2785; J2930; J3010; J3370; J3430; J3475; J3480; J7060; P9012; P9016; P9017; P9035; P9041; Q9967